=== PATIENT | female | born 1930 | race Caucasian/White ===

== ENCOUNTER 2017-07-16 16:07 | Inpatient (IN) ==
[2017-07-16 17:43] LABS: Bilirubin,Urine Negative (Negative); Blood,Urine Large (Negative); Clarity,Urine Turbid (Clear); Color,Urine Orange (Yellow); Glucose,Urine (UA) Normal (Normal); Ketones,Urine Trace mg/dL (Negative); Leukocyte Esterase,Urine Large (Negative); Nitrite,Urine Positive (Negative); Protein,Urine 100 mg/dL (Neg-Trace); Specific Gravity,Urine 1.013 (1.010-1.025); Urobilinogen,Urine Normal (Normal)
[2017-07-16 17:45] LABS: Bacteria,Urine Many per hpf (None-Few); Hyaline Casts,Urine None Seen per lpf (None-Few); Squamous Epithelial Cell,Urine Many per lpf (None-Few); WBC,Urine TNTC per hpf (0-3)
[2017-07-16 18:27] LABS: Basophils % 0.1 %; Hematocrit 45.6 % (35.3-44.9); Hemoglobin 15.8 g/dL (11.5-15.4); Immature Granulocytes % 1.6 % (0-4); Lymphocytes # 0.2 K/mcL (0.6-4.6); Lymphocytes % 1.8 %; Mean Corpuscular HGB Conc 34.6 g/dL (31.6-35.5); Mean Corpuscular Hemoglobin 32.9 pg (28.0-33.3); Mean Platelet Volume 10.8 fL (9.4-12.4); Monocytes # 0.3 K/mcL (0.0-1.3); Monocytes % 2.4 %; Neutrophils # 10.3 K/mcL (1.6-8.9); Platelet Count 107 K/mcL (140-400); Segmented Neutrophils % 94.1 %
--- NOTE | 2017-07-16 18:37 | Emergency Department Note ---
Disposition Clinical Impression: Hypokalemia, MAURICIO (acute kidney injury) Sepsis Qualifiers: Sepsis type: sepsis due to unspecified organism Qualified Code(s): A41.9 - Sepsis, unspecified organism UTI (urinary tract infection) Qualifiers: Urinary tract infection type: site unspecified Hematuria presence: with hematuria Qualified Code(s): N39.0 - Urinary tract infection, site not specified Disposition: Admitted As Inpatient Condition: Undetermined Referrals: Robin Miller MD [Primary Care Provider] - Forms: ED Satisfaction Letter Time of Disposition: 20:14 General Adult HPI - General Chief complaint: ED Nausea/Vomiting/Diarrhea Stated complaint: N/V Time Seen by Provider: 07/16/17 18:22 Source: patient Mode of arrival: wheelchair Limitations: no limitations Nursing Notes Reviewed: Yes Vital Signs Reviewed: Yes - History of Present Illness HPI Narrative: 87-year-old female with recent diagnosis of "kidney infection" who was treated for this arrives [facility] emergency department complaining of myalgias, ill feeling and generalized malaise that has been worsening over the course of the past 3 days. The patient denies any abdominal pain but admits to fevers, chills, generalized myalgias. She denies any cough, sputum production, unilateral weakness, headache, nuchal rigidity. Upon arrival to the emergency department the patient is tachycardic with a heart rate in the 120s. Onset (ago): day(s) (2-3) Location: other (Generalized) Pain Severity: moderate Pain Scale: 6 Quality: aching Consistency: constant, Worsening Improves with: nothing Worsens with: nothing Associated symptoms: Reports: fever/chills, malaise, nausea/vomiting Treatments Prior to Arrival: none - Related Data Home Medications Medication Instructions Recorded Confirmed Docusate [Colace] 100 mg PO DAILY PRN 07/16/17 07/16/17 Ergocalciferol (VITAMIN D2) 50,000 unit PO WE 07/16/17 07/16/17 [Vitamin D2] Ferrous Sulfate [Iron] 325 mg PO DAILY 07/16/17 07/16/17 Levothyroxine Sodium 112 mcg PO QAM 07/16/17 07/16/17 Losartan Potassium [Cozaar] 100 mg PO DAILY 07/16/17 07/16/17 Allergies Allergy/AdvReac Type Severity Reaction Status Date / Time No Known Allergies Allergy Verified 07/16/17 17:31 All systems ED: reviewed and negative except as stated. Constitutional: Reports: fever, chills, weakness Eyes: Denies: eye pain ENT ED: Denies: ear pain, congestion Cardiovascular: Denies: chest pain, palpitations, dyspnea on exertion, edema, syncope Respiratory: Denies: cough, dyspnea, wheezes, sputum production Gastrointestinal: Reports: nausea, vomiting. Denies: abdominal pain, diarrhea, constipation, hematemesis, melena, hematochezia Genitourinary: Reports: dysuria, frequency. Denies: urgency Musculoskeletal: Reports: back pain, myalgia. Denies: neck pain, arthralgia Neurological: Denies: headache, weakness, numbness, paresthesias, confusion Past Medical History - Past Medical History Attestation: Yes The following information was validated with the patient. Source: patient, old records reviewed Medical history: Reports: hyperlipidemia, hypertension Surgical history: Reports: non-contributory Psychiatric history: Reports: no psych history - Social History Smoking Status: Never smoker Smokeless Tobacco Status: No Alcohol use: Reports: none Drug use: Reports: none Physical Exam - General Limitations: no limitations General appearance: alert, in no apparent distress - Head Head exam: atraumatic, normocephalic, normal inspection - Eye Eye exam: Present: normal appearance, PERRL, EOMI - ENT ENT exam: normal exam, normal oropharynx, mucous membranes moist - Neck Neck exam: Present: normal inspection, full ROM, trachea midline - Chest Chest inspection: Present: normal inspection, symmetric chest wall rise - Respiratory Respiratory exam: Present: normal lung sounds bilaterally - Cardiovascular Cardiovascular exam: Present: normal rhythm, tachycardia, normal heart sounds - Abdominal Exam Abdominal exam: Present: soft, Non-Tender. Absent: tenderness, distention, guarding, rebound, rigidity - Extremities Exam Extremities exam: Present: normal inspection, full ROM. Absent: tenderness, pedal edema - Neurological Exam Neurological exam: Present: alert, oriented X3 - Skin Skin exam: Present: warm, dry, intact, normal color Course Vital Signs Temperature 97.9 F 07/16/17 16:09 Pulse Rate 124 07/16/17 16:09 Respiratory Rate 22 07/16/17 16:09 Blood Pressure 190/94 07/16/17 16:09 O2 Sat by Pulse Oximetry 93 07/16/17 16:09 Temperature 97.9 F 07/16/17 16:09 Pulse Rate 124 07/16/17 16:09 Respiratory Rate 22 07/16/17 16:09 Blood Pressure 190/94 07/16/17 16:09 O2 Sat by Pulse Oximetry 92 07/16/17 18:58 Oxygen Delivery Oxygen Delivery Room Air Medical Decision Making - MDM Narrative Medical decision making narrative: Concern for a patient experiencing sepsis due to patient's tachycardia. The patient does have a urinary tract infection so we will begin treatment for fluid resuscitation as well as IV Rocephin. The patient will be admitted to the hospitalist. Accepted by Dr. Conroy. - Lab Data Lab results reviewed: Yes I reviewed the patient's lab results. Result diagrams: 07/16/17 18:02 07/16/17 18:45 Lab Results 07/16/17 07/16/17 07/16/17 Range/Units 17:16 18:02 18:02 WBC 10.9 (4.3-11.1) K/mcL RBC 4.80 (3.82-4.97) M/mcL Hgb 15.8 H (11.5-15.4) g/dL Hct 45.6 H (35.3-44.9) % MCV 95.0 (83.0-100.0) fL MCH 32.9 (28.0-33.3) pg MCHC 34.6 (31.6-35.5) g/dL RDW 13.0 (11.5-14.5) % Plt Count 107 L (140-400) K/mcL MPV 10.8 (9.4-12.4) fL Immature Gran % 1.6 (0-4) % Seg Neutrophils % 94.1 % Lymphocytes % 1.8 % Monocytes % 2.4 % Eosinophils % 0.0 % Basophils % 0.1 % Neutrophils # 10.3 H (1.6-8.9) K/mcL Lymphocytes # 0.2 L (0.6-4.6) K/mcL Monocytes # 0.3 (0.0-1.3) K/mcL Eosinophils # 0.0 (0.0-0.6) K/mcL Basophils # 0.0 (0.0-0.2) K/mcL Dohle Bodies Present A (Not Present) PT (9.4-12.1) Seconds INR APTT (26.0-36.0) Seconds Sodium 136 (136-145) mEq/L Potassium 2.8 L (3.5-4.5) mEq/L Chloride 101 (98-109) mEq/L Carbon Dioxide 23 (19-29) mEq/L BUN 28 H (7-20) mg/dL Creatinine 1.09 (0.57-1.11) mg/dL Est GFR ( Amer) 58 L (> 60) Est GFR (Non-Af Amer) 48 L (> 60) BUN/Creatinine Ratio 26 (6-26) Glucose 113 H (70-99) mg/dL Calculated Osmolality 288 (280-300) Lactic Acid (0.5-2.2) mmol/L Calcium 9.5 (8.6-10.8) mg/dL Phosphorus (2.3-4.7) mg/dL Magnesium (1.6-2.6) mg/dL Total Bilirubin 1.3 H (0.2-1.2) mg/dL Direct Bilirubin 0.6 H (0.0-0.5) mg/dL Indirect Bilirubin 0.7 (0.0-1.2) mg/dL AST 34 (5-34) Units/L ALT 21 (0-55) Units/L Alkaline Phosphatase 228 H (38-126) Units/L Troponin I (0-0.03) ng/mL Serum Total Protein 7.2 (6.0-8.3) g/dL Albumin 3.3 L (3.5-5.0) g/dL Globulin 3.9 H (2.4-3.5) g/dL Albumin/Globulin Ratio 0.8 L (1.1-2.2) Lipase < 10 (8-78) Units/L Urine Color [place] A (Yellow) Urine Clarity Turbid A (Clear) Urine pH 6.0 (5.0-8.0) pH Units Ur Specific [place] 1.013 (1.010-1.025) Urine Protein 100 H (Neg-Trace) mg/dL Urine Glucose (UA) Normal (Normal) mg/dL Urine Ketones Trace H (Negative) mg/dL Urine Blood Large H (Negative) Urine Nitrite Positive A (Negative) Urine Bilirubin Negative (Negative) Urine Urobilinogen Normal (Normal) mg/dL Ur Leukocyte Esterase Large H (Negative) Urine Microscopic RBC 5-15 H (0-3) per hpf Urine Microscopic WBC TNTC H (0-3) per hpf Ur Squamous Epith Cells Many H (None-Few) per lpf Urine Bacteria Many H (None-Few) per hpf Hyaline Casts None Seen (None-Few) per lpf Ur Culture Indicated? YES A (NO) 07/16/17 07/16/17 07/16/17 Range/Units 18:45 18:45 18:45 WBC (4.3-11.1) K/mcL RBC (3.82-4.97) M/mcL Hgb (11.5-15.4) g/dL Hct (35.3-44.9) % MCV (83.0-100.0) fL MCH (28.0-33.3) pg MCHC (31.6-35.5) g/dL RDW (11.5-14.5) % Plt Count (140-400) K/mcL MPV (9.4-12.4) fL Immature Gran % (0-4) % Seg Neutrophils % % Lymphocytes % % Monocytes % % Eosinophils % % Basophils % % Neutrophils # (1.6-8.9) K/mcL Lymphocytes # (0.6-4.6) K/mcL Monocytes # (0.0-1.3) K/mcL Eosinophils # (0.0-0.6) K/mcL Basophils # (0.0-0.2) K/mcL Dohle Bodies (Not Present) PT 12.6 H (9.4-12.1) Seconds INR 1.2 APTT 25.5 L (26.0-36.0) Seconds Sodium 136 (136-145) mEq/L Potassium 2.7 L (3.5-4.5) mEq/L Chloride 101 (98-109) mEq/L Carbon Dioxide 25 (19-29) mEq/L BUN 28 H (7-20) mg/dL Creatinine 1.16 H (0.57-1.11) mg/dL Est GFR ( Amer) 54 L (> 60) Est GFR (Non-Af Amer) 44 L (> 60) BUN/Creatinine Ratio 24 (6-26) Glucose 109 H (70-99) mg/dL Calculated Osmolality 288 (280-300) Lactic Acid 2.1 (0.5-2.2) mmol/L Calcium 9.4 (8.6-10.8) mg/dL Phosphorus 1.3 L (2.3-4.7) mg/dL Magnesium 1.2 L (1.6-2.6) mg/dL Total Bilirubin (0.2-1.2) mg/dL Direct Bilirubin (0.0-0.5) mg/dL Indirect Bilirubin (0.0-1.2) mg/dL AST (5-34) Units/L ALT (0-55) Units/L Alkaline Phosphatase (38-126) Units/L Troponin I (0-0.03) ng/mL Serum Total Protein (6.0-8.3) g/dL Albumin (3.5-5.0) g/dL Globulin (2.4-3.5) g/dL Albumin/Globulin Ratio (1.1-2.2) Lipase (8-78) Units/L Urine Color (Yellow) Urine Clarity (Clear) Urine pH (5.0-8.0) pH Units Ur Specific [place] (1.010-1.025) Urine Protein (Neg-Trace) mg/dL Urine Glucose (UA) (Normal) mg/dL Urine Ketones (Negative) mg/dL Urine Blood (Negative) Urine Nitrite (Negative) Urine Bilirubin (Negative) Urine Urobilinogen (Normal) mg/dL Ur Leukocyte Esterase (Negative) Urine Microscopic RBC (0-3) per hpf Urine Microscopic WBC (0-3) per hpf Ur Squamous Epith Cells (None-Few) per lpf Urine Bacteria (None-Few) per hpf Hyaline Casts (None-Few) per lpf Ur Culture Indicated? (NO) 07/16/17 Range/Units 18:45 WBC (4.3-11.1) K/mcL RBC (3.82-4.97) M/mcL Hgb (11.5-15.4) g/dL Hct (35.3-44.9) % MCV (83.0-100.0) fL MCH (28.0-33.3) pg MCHC (31.6-35.5) g/dL RDW (11.5-14.5) % Plt Count (140-400) K/mcL MPV (9.4-12.4) fL Immature Gran % (0-4) % Seg Neutrophils % % Lymphocytes % % Monocytes % % Eosinophils % % Basophils % % Neutrophils # (1.6-8.9) K/mcL Lymphocytes # (0.6-4.6) K/mcL Monocytes # (0.0-1.3) K/mcL Eosinophils # (0.0-0.6) K/mcL Basophils # (0.0-0.2) K/mcL Dohle Bodies (Not Present) PT (9.4-12.1) Seconds INR APTT (26.0-36.0) Seconds Sodium (136-145) mEq/L Potassium (3.5-4.5) mEq/L Chloride (98-109) mEq/L Carbon Dioxide (19-29) mEq/L BUN (7-20) mg/dL Creatinine (0.57-1.11) mg/dL Est GFR ( Amer) (> 60) Est GFR (Non-Af Amer) (> 60) BUN/Creatinine Ratio (6-26) Glucose (70-99) mg/dL Calculated Osmolality (280-300) Lactic Acid (0.5-2.2) mmol/L Calcium (8.6-10.8) mg/dL Phosphorus (2.3-4.7) mg/dL Magnesium (1.6-2.6) mg/dL Total Bilirubin (0.2-1.2) mg/dL Direct Bilirubin (0.0-0.5) mg/dL Indirect Bilirubin (0.0-1.2) mg/dL AST (5-34) Units/L ALT (0-55) Units/L Alkaline Phosphatase (38-126) Units/L Troponin I 0.09 H* (0-0.03) ng/mL Serum Total Protein (6.0-8.3) g/dL Albumin (3.5-5.0) g/dL Globulin (2.4-3.5) g/dL Albumin/Globulin Ratio (1.1-2.2) Lipase (8-78) Units/L Urine Color (Yellow) Urine Clarity (Clear) Urine pH (5.0-8.0) pH Units Ur Specific [place] (1.010-1.025) Urine Protein (Neg-Trace) mg/dL Urine Glucose (UA) (Normal) mg/dL Urine Ketones (Negative) mg/dL Urine Blood (Negative) Urine Nitrite (Negative) Urine Bilirubin (Negative) Urine Urobilinogen (Normal) mg/dL Ur Leukocyte Esterase (Negative) Urine Microscopic RBC (0-3) per hpf Urine Microscopic WBC (0-3) per hpf Ur Squamous Epith Cells (None-Few) per lpf Urine Bacteria (None-Few) per hpf Hyaline Casts (None-Few) per lpf Ur Culture Indicated? (NO) - Radiology Data Radiology results reviewed: Yes I reviewed the patient's radiology results. - EKG Data EKG #1 EKG attestation: Yes I reviewed and interpreted this EKG. EKG results narrative: Heart rate 1 18 bpm. NE interval 148 ms. QTC 410 ms. Normal axis. Sinus tachycardia with mild ST depression diffusely noted in leads. With tachycardia and ST depression noted. Critical Care Time Critical Care Time: Yes Total Critical Care Time: 35 Attestation: Critical care time spent was approximately 35 minutes. Time spent and medical management of possible sepsis secondary to a urinary tract infection.
[2017-07-16 18:44] LABS: Alanine Aminotransferase 21 Units/L (0-55); Albumin 3.3 g/dL (3.5-5.0); Albumin/Globulin Ratio 0.8 (1.1-2.2); Alkaline Phosphatase 228 Units/L (38-126); Aspartate Amino Transferase 34 Units/L (5-34); BUN/Creatinine Ratio 26 (6-26); Bilirubin,Direct 0.6 mg/dL (0.0-0.5); Bilirubin,Indirect 0.7 mg/dL (0.0-1.2); Bilirubin,Total 1.3 mg/dL (0.2-1.2); Blood Urea Nitrogen 28 mg/dL (7-20); Calcium 9.5 mg/dL (8.6-10.8); Carbon Dioxide 23 mEq/L (19-29); Chloride 101 mEq/L (98-109); Globulin 3.9 g/dL (2.4-3.5); Glucose 113 mg/dL (70-99); Osmolality,Calculated 288 (280-300); Potassium 2.8 mEq/L (3.5-4.5); Sodium 136 mEq/L (136-145); Total Protein 7.2 g/dL (6.0-8.3); eGFR For African Americans 58 (> 60); eGFR For Non-African Americans 48 (> 60)
[2017-07-16 18:45] LABS: Lipase < 10 Units/L (8-78)
[2017-07-16 18:48] LABS: Dohle Bodies Present (Not Present)
[2017-07-16 18:56] LABS: INR 1.2; Prothrombin Time 12.6 Seconds (9.4-12.1)
[2017-07-16 18:59] LABS: Activated Partial Thrombo Time 25.5 Seconds (26.0-36.0)
[2017-07-16 19:02] LABS: Calcium 9.4 mg/dL (8.6-10.8); Magnesium 1.2 mg/dL (1.6-2.6); Phosphorous 1.3 mg/dL (2.3-4.7); Potassium 2.7 mEq/L (3.5-4.5)
--- NOTE | 2017-07-16 19:02 | Emergency Department Note ---
START Narrative - START START: I examined this patient and my medical decision-making was reviewed with the Resident Physician. I agree with the documented findings, disposition and treatment plan as described except to the extent set forth below. 87 yo F here for urinary sx. having painful urination assoc with fevers, nausea , poor appetite, and weakness. will tx for UTI and sepsis iv fluids, rocephin, blood cultures admit
[2017-07-16] MEDS: 0.9 % Sodium Chloride 1,000 ML IVC SCH ×3 (19:13→23:17)
[2017-07-16] MEDS ORDERED: Azithromycin 500 MG in D5% in Water 250 ML IVPB ONE (19:17)
[2017-07-16] MEDS ORDERED: Aspirin 325 MG TABLET PO ONE (19:20)
[2017-07-16] MEDS ORDERED: Ondansetron 4 MG/2 ML VIAL IVP PRN (20:19)
[2017-07-16] MEDS ORDERED: Naloxone 0.4 MG/ML INJ IVP PRN (20:19)
--- NOTE | 2017-07-16 23:18 | Internal Med History&Physical ---
<Aj Beckman - Last Filed: 07/17/17 00:09> Date of Encounter: 07/17/17 Time of Encounter: 20:45 Assessment and Plan (1) Severe sepsis Current visit: Yes Status: Acute Patient presents to the hospital with acute kidney injury and tachycardia, likely secondary to sepsis from UTI. -Urinalysis revealed the presence of Rich turbid urine with positive leukocyte esterase and nitrates, as well as white blood cells and bacteria. -Blood cultures and urine cultures have been ordered. -Patient is currently on Rocephin. -IV fluids. -Adjust antibiotic therapy as needed based on the results of blood and urine culture. (2) UTI (urinary tract infection) Current visit: Yes Status: Acute Patient signs and symptoms are consistent with UTI. -Patient experienced frequency, urgency, nausea, vomiting, and malaise, and low back pain. -Urinalysis performed in the ER revealed the presence of orange-colored, turbid urine, leukocyte esterase present with positive nitrates, and positive for white blood cells and bacteria. -Patient is on IV fluids. Rocephin. Blood cultures and urine cultures have been ordered. Qualifiers: Urinary tract infection type: site unspecified Hematuria presence: with hematuria Qualified Code(s): N39.0 - Urinary tract infection, site not specified; R31.9 - Hematuria, unspecified; R31.9 - Hematuria, unspecified (3) Hypokalemia Current visit: Yes Status: Acute Replace as needed. (4) MAURICIO (acute kidney injury) Current visit: Yes Status: Acute Patient's creatinine on admission was 1.09, has increased to 1.16. -Presence of acute kidney injury indicative of severe sepsis secondary to UTI. -IV fluids. -Continue antibiotics, adjust treatment accordingly with blood and urine culture results. (5) Hypertension Current visit: Yes Status: Acute Patient has a known history of hypertension. Blood pressure on admission was elevated at 190/94. -Patient's family states that patient's blood pressure routinely fluctuates. -Patient normally takes losartan for blood pressure. -Hold this medication for the time being due to patient's MAURICIO. Qualifiers: Qualified Code(s): I10 - Essential (primary) hypertension Internal Medicine - H&P: HPI Chief complaint: Dysuria, nausea, malaise Admitted From: Home History of present illness: Ms. Skinner is a 87 year old female with a past medical history of hyperlipidemia and hypertension who presented to the emergency department with chief complaint of myalgias, ill feeling, and generalized malaise of 3 days' duration. Patient states that since this started, her symptoms had gradually gotten worse. Patient does not have any prior history of urinary tract infections. Patient denies having any abdominal pain, but admits to having fevers, chills, and lower back pain bilaterally. She describes her lower back pain as aching in character, rated 6/10, nonradiating, and constant. Patient denies having any cough, sputum production, weakness, headache, or nuchal rigidity. Patient denies ever having these symptoms before. She denies ever having any kidney stones. Patient does note a recent change in the appearance of her urine, describing it as cloudy and orange in color. Patient denies seeing any blood in the urine. Past Med Surg Social Fam HX - Past Medical History Medical history: hyperlipidemia, hypertension Psychiatric history: no psych history - Past Surgical History Surgical History: non-contributory - Social History Smoking Status: Never smoker Smokeless Tobacco Status: No Alcohol use: none Drug use: none - Family History Son Living Status: Age at : 40 Cause of : [place] Hx Family Cardiac Disorders: Yes Father Living Status: Hx Family Cardiac Disorders: Yes Internal Medicine - H&P: Meds Docusate [Colace] 100 mg PO DAILY PRN 07/16/17 [History] Ergocalciferol (VITAMIN D2) [Vitamin D2] 50,000 unit PO WE 07/16/17 [History] Ferrous Sulfate [Iron] 325 mg PO DAILY 07/16/17 [History] Levothyroxine Sodium 112 mcg PO QAM 07/16/17 [History] Losartan Potassium [Cozaar] 100 mg PO DAILY 07/16/17 [History] 3 Allergy/AdvReac Type Severity Reaction Status Date / Time No Known Allergies Allergy Verified 07/16/17 17:31 All Systems PM: A 10-system review of systems was performed and is negative for pertinent findings except as documented above in the HPI. - Constitutional Constitutional: chills, malaise, weakness, no night sweats - Cardiovascular Cardiovascular ROS IM: no chest pain, no diaphoresis, no dyspnea, no lightheadedness, no palpitations, no syncope - Respiratory Respiratory: no cough, no dyspnea, no wheezing, no excessive phlegm production - Gastrointestinal Gastrointestinal: nausea, vomiting, no abdominal pain, no diarrhea, no hematemesis, no hematochezia, no melena - Genitourinary Genitourinary: dysuria, urinary frequency, urinary urgency, no change in urinary stream, no hematuria - Musculoskeletal Musculoskeletal ROS IM: back pain - Constitutional Vitals: Temp Pulse Resp BP Pulse Ox 98.1 F 107 20 121/59 98 07/16/17 21:57 07/16/17 21:57 07/16/17 21:57 07/16/17 21:57 07/16/17 21:57 General appearance: Present: A&O X 3, answers questions appropriately - Head Head exam: Present: atraumatic, normal inspection, normocephalic - Respiratory Respiratory exam: Present: CTAB. Absent: accessory muscle use, rales, rhonchi, wheezes - Cardiovascular Cardiovascular exam: Present: RRR, +S1, +S2. Absent: diastolic murmur, gallop, rubs, systolic murmur - GI/Abdominal GI/Abdominal exam: Present: normal bowel sounds, soft, no peritoneal signs. Absent: distended, tenderness - Extremities Exam Extremities exam: Present: warm, radial pulses palpable and symmetrical. Absent : pedal edema - Skin Skin exam: Present: dry, intact Internal Med - H&P Results - Labs CBC & Chem 7: 07/16/17 18:02 07/16/17 18:45 <Jose R Finn - Last Filed: 07/17/17 01:20> Date of Encounter: 07/16/17 Internal Medicine - H&P: HPI History of present illness: Ms. Skinner is a 87 year old female All Systems PM: A 10-system review of systems was performed and is negative for pertinent findings except as documented above in the HPI. - Constitutional Vitals: Temp Pulse Resp BP Pulse Ox 98.1 F 107 20 121/59 98 07/16/17 21:57 07/16/17 21:57 07/16/17 21:57 07/16/17 21:57 07/16/17 21:57 Internal Med - H&P Results - Labs CBC & Chem 7: 07/16/17 18:02 07/16/17 18:45 - Attending Attestation Correction; date of encounter was 07/16/17 and not 07/17/17 I personally interviewed and examined this patient and my medical decision- making was reviewed with the Resident Physician. I agree with the documented findings, disposition and treatment plan as described except to the extent set forth below. Patient meets SIRS criteria with tachycardia and tachypnea, with a source as well as end organ dysfunction. Meets MAURICIO by elevated creatinine from baseline of 0.7 to 1.16. Physical exam suggested crackles on the right middle and lower lung base but pt reports known history of emphysema on that side. Jose R Finn MD, MPH Hospitalist
[2017-07-17] MEDS: *HR* Heparin 5,000 UNIT/ML VIAL SQ SCH ×2 (05:42→17:04)
[2017-07-17 06:04] LABS: Hematocrit 39.3 % (35.3-44.9); Hemoglobin 13.2 g/dL (11.5-15.4); Immature Platelets 8.6 % (1.1-6.1); Mean Corpuscular HGB Conc 33.6 g/dL (31.6-35.5); Mean Corpuscular Hemoglobin 32.6 pg (28.0-33.3); Mean Platelet Volume 11.3 fL (9.4-12.4); Red Blood Count 4.05 M/mcL (3.82-4.97); Red Cell Distribution Width 13.3 % (11.5-14.5)
[2017-07-17 06:10] LABS: Acinetobacter baumannii by PCR Not Detected (Not Detect); Candida albicans by PCR Not Detected (Not Detect); Candida glabrata by PCR Not Detected (Not Detect); Candida krusei by PCR Not Detected (Not Detect); Candida parapsilosis by PCR Not Detected (Not Detect); Candida tropicalis by PCR Not Detected (Not Detect); Enterococcus by PCR Not Detected (Not Detect); Escherichia coli by PCR ***DETECTED*** (Not Detect); Klebsiella oxytoca by PCR Not Detected (Not Detect); Klebsiella pneumoniae by PCR Not Detected (Not Detect); Pseudomonas aeruginosa by PCR Not Detected (Not Detect); Serratia marcescens by PCR Not Detected (Not Detect); Staphylococcus aureus by PCR Not Detected (Not Detect); Streptococcus agalactiae(B)PCR Not Detected (Not Detect); Streptococcus by PCR Not Detected (Not Detect); Streptococcus pneumoniae PCR Not Detected (Not Detect); Streptococcus pyogenes (A) PCR Not Detected (Not Detect); blaKPC Carbapenem-Resist Gene Not Detected (Not Detect)
[2017-07-17 06:17] LABS: Platelet Count 99 K/mcL (140-400)
[2017-07-17 06:21] LABS: BUN/Creatinine Ratio 29 (6-26); Blood Urea Nitrogen 24 mg/dL (7-20); Carbon Dioxide 22 mEq/L (19-29); Chloride 107 mEq/L (98-109); Glucose 106 mg/dL (70-99); Magnesium 2.1 mg/dL (1.6-2.6); Osmolality,Calculated 288 (280-300); Sodium 137 mEq/L (136-145); eGFR For African Americans > 60 (> 60); eGFR For Non-African Americans > 60 (> 60)
[2017-07-17 06:29] LABS: Calcium 7.9 mg/dL (8.6-10.8); Phosphorous 3.1 mg/dL (2.3-4.7); Potassium 4.1 mEq/L (3.5-4.5)
[2017-07-17 06:33] LABS: Lymphocytes # 2.1 K/mcL (0.6-4.6); Monocytes # 1.8 K/mcL (0.0-1.3); Neutrophils # 13.7 K/mcL (1.6-8.9); Platelet Estimate Slight Decrease (Normal)
--- NOTE | 2017-07-17 08:27 | Internal Med Progress Note ---
<Dirk Nicole - Last Filed: 07/17/17 16:01> Date of Encounter: 07/17/17 Time of Encounter: 08:40 - Assessment and plan (1) Severe sepsis Current Visit: Yes Status: Acute Assessment and plan: SIRS/Sepsis criteria: Tachycardia, tachypnea, marginal blood pressure, WBC 17.5 , 62% Bands, Severe UTI/Bateremia, Lactic Acid 2.5 Upon presentation, the patient was clearly septic. This has resolved substantially Urine culture demonstrates Escherichia coli, blood culture showed Escherichia coli bacteremia Patient was started on ceftriaxone Day 1 We will continue to monitor (2) UTI (urinary tract infection) Current Visit: Yes Status: Acute Assessment and plan: UTI, culture positive Escherichia coli Patient is being treated with ceftriaxone day 1 She remains afebrile, vitals have returned to stable Patient is not experiencing any symptoms Qualifiers: Urinary tract infection type: site unspecified Hematuria presence: with hematuria Qualified Code(s): N39.0 - Urinary tract infection, site not specified; R31.9 - Hematuria, unspecified; R31.9 - Hematuria, unspecified (3) Hypokalemia Current Visit: Yes Status: Resolved Assessment and plan: Hypokalemia on admission, resolved (4) Hypertension Current Visit: Yes Status: Acute Assessment and plan: Hold home meds for hypotension Qualifiers: Hypertension type: essential hypertension Qualified Code(s): I10 - Essential (primary) hypertension (5) DVT prophylaxis Current Visit: Yes Status: Acute Assessment and plan: SQ heparin - Subjective Interval history: The patient is resting comfortably in bed at the time of the examination. She is not having any acute symptoms, and she says that she is feeling okay overall. - Constitutional Vitals: Temp Pulse Resp BP Pulse Ox 97.7 F 87 14 132/72 97 07/17/17 06:44 07/17/17 06:44 07/17/17 06:44 07/17/17 06:44 07/17/17 06:44 General appearance: Present: cooperative, A&O X 3, underweight, answers questions appropriately. Absent: mild distress - Head Head exam: Present: atraumatic, normocephalic - Eye Eye exam: Present: PERRL, conjuntiva pink, sclera anicteric Pupils: Present: PERRL - Neck Neck exam general surgery: Present: supple, trachea midline. Absent: lymphadenopathy - Respiratory Respiratory exam: Present: CTAB. Absent: accessory muscle use, rales, rhonchi, wheezes - Cardiovascular Cardiovascular exam: Present: RRR, +S1, +S2. Absent: diastolic murmur, gallop, rubs, systolic murmur - GI/Abdominal GI/Abdominal exam: Present: normal bowel sounds, soft, no peritoneal signs. Absent: distended, tenderness - Extremities Exam Extremities exam: Present: warm, radial pulses palpable and symmetrical. Absent : calf tenderness, cyanotic, pedal edema - Neurological Exam Neurological exam: Present: CN II-XII intact, oriented X3, no focal deficits. Absent: pronater drift, facial droop, speech deficit - Skin Skin exam: Present: dry, intact Internal Medicine: Result - Labs CBC & Chem 7: 07/17/17 05:19 07/17/17 05:19 Labs: Short CBC 07/17/17 Range/Units 05:19 WBC 17.5 H D (4.3-11.1) K/mcL Hgb 13.2 D (11.5-15.4) g/dL Hct 39.3 (35.3-44.9) % Plt Count 99 L (140-400) K/mcL Neutrophils # 13.7 H (1.6-8.9) K/mcL BMP 07/17/17 05:19 Sodium 137 Potassium 4.1 D Chloride 107 Carbon Dioxide 22 BUN 24 H Creatinine 0.84 Glucose 106 H Calcium 7.9 L D Cardiac Enzymes 07/17/17 Range/Units 05:19 Troponin I 0.04 H* (0-0.03) ng/mL - ABG Interpretation ABG results: PT/INR, D-dimer PT 12.6 Seconds (9.4-12.1) H 07/16/17 18:45 Consult Discharge Plan - Plan Referrals: Robin Miller MD [Primary Care Provider] - <Sanjeev Cha - Last Filed: 07/17/17 18:52> Date of Encounter: 07/17/17 - Constitutional Vitals: Temp Pulse Resp BP Pulse Ox 97.8 F 98 14 136/74 94 07/17/17 15:00 07/17/17 15:00 07/17/17 15:00 07/17/17 15:00 07/17/17 15:00 Internal Medicine: Result - Labs CBC & Chem 7: 07/17/17 05:19 07/17/17 05:19 Labs: Short CBC 07/17/17 Range/Units 05:19 WBC 17.5 H D (4.3-11.1) K/mcL Hgb 13.2 D (11.5-15.4) g/dL Hct 39.3 (35.3-44.9) % Plt Count 99 L (140-400) K/mcL Neutrophils # 13.7 H (1.6-8.9) K/mcL BMP 07/17/17 05:19 Sodium 137 Potassium 4.1 D Chloride 107 Carbon Dioxide 22 BUN 24 H Creatinine 0.84 Glucose 106 H Calcium 7.9 L D Cardiac Enzymes 07/17/17 Range/Units 05:19 Troponin I 0.04 H* (0-0.03) ng/mL - ABG Interpretation ABG results: PT/INR, D-dimer PT 12.6 Seconds (9.4-12.1) H 07/16/17 18:45 - Attending Attestation I examined this patient and my medical decision-making was reviewed with the Resident Physician. I agree with the documented findings, disposition and treatment plan as described except to the extent set forth below.
[2017-07-17] MEDS: 0.9 % Sodium Chloride 1,000 ML IVC SCH (16:08)
[2017-07-17] MEDS: Acetaminophen 325 MG TABLET PO PRN (18:25)
--- NOTE | 2017-07-17 20:25 | Electrocardiograph Report ---
[address] [place] [address] Test Date: 2017-07-16 Pat Name: Shelley Skinner Department: 102 Room: [facility] Gender: F Fruit Raiser: Kiran : 1930 Requested By: John Griffiths Order Number: [id number] Reading MD: Arnaldo Pineda MD Measurements Intervals [place] Rate: 118 P: 57 KS: 148 QRS: 69 QRSD: 86 T: 63 QT: 340 QTc: 410 Interpretive Statements SINUS TACHYCARDIA Electronically Signed On 07-17-2017 20:23:52 EDT by Arnaldo Pineda MD
[2017-07-18] MEDS: 0.9 % Sodium Chloride 1,000 ML IVC SCH (00:38)
--- NOTE | 2017-07-18 05:06 | Internal Med Progress Note ---
<Dirk Nicole - Last Filed: 07/18/17 14:54> Date of Encounter: 07/18/17 Time of Encounter: 08:45 - Assessment and plan (1) Severe sepsis Current Visit: Yes Status: Acute Assessment and plan: Sepsis secondary to E. Coli UTI/Bacteremia, Resolved SIRS/Sepsis criteria: Tachycardia, WBC 14, 2% Bands Urine culture demonstrates Escherichia coli, blood culture showed Escherichia coli bacteremia Patient was started on ceftriaxone Day 2 We will continue to monitor (2) UTI (urinary tract infection) Current Visit: Yes Status: Acute Assessment and plan: UTI, culture positive Escherichia coli Patient is being treated with ceftriaxone day 2 She remains afebrile, vitals have returned to stable Patient is not experiencing any symptoms Qualifiers: Urinary tract infection type: site unspecified Hematuria presence: with hematuria Qualified Code(s): N39.0 - Urinary tract infection, site not specified; R31.9 - Hematuria, unspecified; R31.9 - Hematuria, unspecified (3) Hypokalemia Current Visit: Yes Status: Resolved Assessment and plan: K+ 3.3, 2.7 on admission 20mEq KCl BID today, and then will initiate maintenance dose (4) Hypertension Current Visit: Yes Status: Acute Assessment and plan: BP on admission was low, Increased to 154/85 after IV fluids Stop fluids, continue oral hydration Restart losartan at 50mg initially, will increase to home dose of 100mg as tolerated Qualifiers: Hypertension type: essential hypertension Qualified Code(s): I10 - Essential (primary) hypertension (5) Severe protein-calorie malnutrition Current Visit: Yes Status: Acute Assessment and plan: The patient has had poor oral intake of food for about one month, and has lost 10pounds in that time She is underweight We will focus on calorie intake. (6) DVT prophylaxis Current Visit: Yes Status: Acute Assessment and plan: SQ heparin - Subjective Interval history: The patient is resting comfortably in bed at the time of the examination. She is not having any acute symptoms, and she says that she is feeling okay overall. She does complain of tenderness where her air sampling and monitoring is resting, but it is relieved by moving the monitor. - Constitutional Vitals: Temp Pulse Resp BP Pulse Ox 98.4 F 95 16 154/85 96 07/18/17 03:00 07/18/17 03:00 07/18/17 03:00 07/18/17 03:00 07/18/17 03:00 General appearance: Present: cooperative, A&O X 3, underweight, answers questions appropriately. Absent: mild distress - Head Head exam: Present: atraumatic, normocephalic - Eye Eye exam: Present: PERRL, conjuntiva pink, sclera anicteric Pupils: Present: PERRL - Neck Neck exam general surgery: Present: supple, trachea midline. Absent: lymphadenopathy - Respiratory Respiratory exam: Present: rhonchi (Right lung, patient says chronic from emphasymatous changes). Absent: accessory muscle use, rales, wheezes - Cardiovascular Cardiovascular exam: Present: RRR, +S1, +S2. Absent: diastolic murmur, gallop, rubs, systolic murmur - GI/Abdominal GI/Abdominal exam: Present: normal bowel sounds, soft, no peritoneal signs. Absent: distended, tenderness - Extremities Exam Extremities exam: Present: warm, radial pulses palpable and symmetrical. Absent : calf tenderness, cyanotic, pedal edema - Neurological Exam Neurological exam: Present: CN II-XII intact, oriented X3, no focal deficits. Absent: pronater drift, facial droop, speech deficit - Skin Skin exam: Present: dry, intact Internal Medicine: Result - Labs CBC & Chem 7: 07/18/17 05:50 07/18/17 05:50 Labs: Short CBC 07/17/17 Range/Units 05:19 WBC 17.5 H D (4.3-11.1) K/mcL Hgb 13.2 D (11.5-15.4) g/dL Hct 39.3 (35.3-44.9) % Plt Count 99 L (140-400) K/mcL Neutrophils # 13.7 H (1.6-8.9) K/mcL BMP 07/17/17 05:19 Sodium 137 Potassium 4.1 D Chloride 107 Carbon Dioxide 22 BUN 24 H Creatinine 0.84 Glucose 106 H Calcium 7.9 L D Cardiac Enzymes 07/17/17 Range/Units 05:19 Troponin I 0.04 H* (0-0.03) ng/mL - ABG Interpretation ABG results: PT/INR, D-dimer PT 12.6 Seconds (9.4-12.1) H 07/16/17 18:45 Consult Discharge Plan - Plan Referrals: Robin Miller MD [Primary Care Provider] - <Sanjeev Cha P - Last Filed: 07/18/17 19:04> Date of Encounter: 07/18/17 - Constitutional Vitals: Temp Pulse Resp BP Pulse Ox 98.2 F 97 18 148/88 97 07/18/17 18:35 07/18/17 18:35 07/18/17 18:35 07/18/17 18:35 07/18/17 16:00 Internal Medicine: Result - Labs CBC & Chem 7: 07/18/17 05:50 07/18/17 05:50 Labs: Short CBC 07/18/17 Range/Units 05:50 WBC 14.0 H (4.3-11.1) K/mcL Hgb 13.8 (11.5-15.4) g/dL Hct 40.7 (35.3-44.9) % Plt Count 107 L (140-400) K/mcL Neutrophils # 11.5 H (1.6-8.9) K/mcL BMP 07/18/17 05:50 Sodium 140 Potassium 3.3 L Chloride 112 H Carbon Dioxide 23 BUN 15 Creatinine 0.70 Glucose 83 Calcium 8.4 L - ABG Interpretation ABG results: PT/INR, D-dimer PT 12.6 Seconds (9.4-12.1) H 07/16/17 18:45 - Attending Attestation I examined this patient and my medical decision-making was reviewed with the Resident Physician. I agree with the documented findings, disposition and treatment plan as described except to the extent set forth below.
[2017-07-18 06:44] LABS: Hematocrit 40.7 % (35.3-44.9); Hemoglobin 13.8 g/dL (11.5-15.4); Mean Corpuscular HGB Conc 33.9 g/dL (31.6-35.5); Mean Corpuscular Hemoglobin 32.7 pg (28.0-33.3); Mean Corpuscular Volume 96.4 fL (83.0-100.0); Mean Platelet Volume 11.2 fL (9.4-12.4); Platelet Count 107 K/mcL (140-400); Red Blood Count 4.22 M/mcL (3.82-4.97); Red Cell Distribution Width 13.8 % (11.5-14.5)
[2017-07-18 06:59] LABS: BUN/Creatinine Ratio 21 (6-26); Blood Urea Nitrogen 15 mg/dL (7-20); Calcium 8.4 mg/dL (8.6-10.8); Carbon Dioxide 23 mEq/L (19-29); Chloride 112 mEq/L (98-109); Glucose 83 mg/dL (70-99); Osmolality,Calculated 290 (280-300); Potassium 3.3 mEq/L (3.5-4.5); Sodium 140 mEq/L (136-145); eGFR For African Americans > 60 (> 60); eGFR For Non-African Americans > 60 (> 60)
[2017-07-18 07:12] LABS: Monocytes # 0.6 K/mcL (0.0-1.3); Neutrophils # 11.5 K/mcL (1.6-8.9)
[2017-07-18 07:14] LABS: Platelet Estimate Slight Decrease (Normal)
[2017-07-18 07:15] LABS: Dohle Bodies Present (Not Present)
[2017-07-18] MEDS: *HR* Heparin 5,000 UNIT/ML VIAL SQ SCH ×2 (09:01→17:39)
--- NOTE | 2017-07-18 14:21 | Discharge Summary ---
Date of Encounter: 07/18/17 - Discharge Diagnosis (1) Severe sepsis Status: Acute (2) UTI (urinary tract infection) Status: Acute Qualifiers: Urinary tract infection type: site unspecified Hematuria presence: with hematuria Qualified Code(s): N39.0 - Urinary tract infection, site not specified; R31.9 - Hematuria, unspecified; R31.9 - Hematuria, unspecified (3) Hypokalemia Status: Resolved (4) Hypertension Status: Acute Qualifiers: Hypertension type: essential hypertension Qualified Code(s): I10 - Essential (primary) hypertension (5) DVT prophylaxis Status: Acute - Discharge Medications Home Medications: Docusate [Colace] 100 mg PO DAILY PRN 07/16/17 [History] Ergocalciferol (VITAMIN D2) [Vitamin D2] 50,000 unit PO WE 07/16/17 [History] Ferrous Sulfate [Iron] 325 mg PO DAILY 07/16/17 [History] Levothyroxine Sodium 112 mcg PO QAM 07/16/17 [History] Losartan Potassium [Cozaar] 100 mg PO DAILY 07/16/17 [History] Allergies/Adverse Reactions: 3 Allergy/AdvReac Type Severity Reaction Status Date / Time No Known Allergies Allergy Verified 07/16/17 17:31 Date of admission: 07/16/17 20:54 Primary care physician: Robin Miller MD Consults: 07/16/17 22:16 Consult to Nutrition [CONS] Routine Comment: Consulting Provider: NUTRITION Reason for Dietary Consult: MST Score - Patient Status Condition: Undetermined - Discharge Instructions Follow Up With: Robin Miller MD [Primary Care Provider] - Hospital course: Ms. Skinner is a 87 year old female - Time Spent with Patient Total time spent providing and/or coordinating discharge services: - Constitutional Vitals: Temp Pulse Resp BP Pulse Ox 97.9 F 89 15 147/87 97 07/18/17 06:41 07/18/17 06:41 07/18/17 06:41 07/18/17 06:41 07/18/17 06:41 General appearance: Present: cooperative, A&O X 3, underweight, answers questions appropriately. Absent: mild distress
[2017-07-19 05:09] LABS: Basophils % 0.4 %; Eosinophils # 0.1 K/mcL (0.0-0.6); Eosinophils % 1.2 %; Hemoglobin 14.2 g/dL (11.5-15.4); Immature Granulocytes % 0.7 % (0-4); Lymphocytes # 1.1 K/mcL (0.6-4.6); Lymphocytes % 10.5 %; Mean Corpuscular HGB Conc 33.8 g/dL (31.6-35.5); Mean Corpuscular Volume 94.6 fL (83.0-100.0); Mean Platelet Volume 10.9 fL (9.4-12.4); Monocytes # 1.3 K/mcL (0.0-1.3); Monocytes % 11.5 %; Neutrophils # 8.2 K/mcL (1.6-8.9); Platelet Count 121 K/mcL (140-400); Red Blood Count 4.44 M/mcL (3.82-4.97); Red Cell Distribution Width 13.5 % (11.5-14.5); Segmented Neutrophils % 75.7 %
[2017-07-19 05:25] LABS: BUN/Creatinine Ratio 18 (6-26); Blood Urea Nitrogen 12 mg/dL (7-20); Calcium 8.9 mg/dL (8.6-10.8); Carbon Dioxide 27 mEq/L (19-29); Chloride 107 mEq/L (98-109); Glucose 90 mg/dL (70-99); Osmolality,Calculated 289 (280-300); Potassium 3.3 mEq/L (3.5-4.5); Sodium 140 mEq/L (136-145); eGFR For African Americans > 60 (> 60); eGFR For Non-African Americans > 60 (> 60)
[2017-07-19] MEDS: *HR* Heparin 5,000 UNIT/ML VIAL SQ SCH ×2 (05:52→18:16)
[2017-07-19] MEDS: Acetaminophen 325 MG TABLET PO PRN ×2 (08:23→21:09)
[2017-07-19] MEDS: *HR* Labetalol 20 MG/4 ML SYRINGE IVP PRN ×2 (08:24→18:16)
--- NOTE | 2017-07-19 18:00 | Internal Med Progress Note ---
Date of Encounter: 07/19/17 Time of Encounter: 17:58 - Assessment and plan (1) Severe sepsis Current Visit: Yes Status: Acute Assessment and plan: Severe sepsis Source: Likely urinary tract infection Organism: Escherichia coli Blood culture/urine culture positive for the same organism. Plan: Presently on ceftriaxone: Day 3 Will continue present antibiotic. (2) UTI (urinary tract infection) Current Visit: Yes Status: Acute Assessment and plan: UTI, culture positive Escherichia coli Patient is being treated with ceftriaxone day 2 She remains afebrile, vitals have returned to stable Patient is not experiencing any symptoms Qualifiers: Urinary tract infection type: site unspecified Hematuria presence: with hematuria Qualified Code(s): N39.0 - Urinary tract infection, site not specified; R31.9 - Hematuria, unspecified; R31.9 - Hematuria, unspecified (3) Hypertension Current Visit: Yes Status: Acute Assessment and plan: BP on admission was low, Increased to 154/85 after IV fluids Stop fluids, continue oral hydration Restart losartan at 50mg initially, will increase to home dose of 100mg as tolerated Qualifiers: Hypertension type: essential hypertension Qualified Code(s): I10 - Essential (primary) hypertension (4) Severe protein-calorie malnutrition Current Visit: Yes Status: Acute Assessment and plan: The patient has had poor oral intake of food for about one month, and has lost 10pounds in that time She is underweight We will focus on calorie intake. - Subjective Interval history: Patient seen and examined. Chart reviewed. patient is comfortably sitting up in bed. Family around bedside. - Constitutional Vitals: Temp Pulse Resp BP Pulse Ox 98.4 F 80 16 181/92 96 07/19/17 16:07 07/19/17 16:07 07/19/17 16:07 07/19/17 16:07 07/19/17 16:07 General appearance: Present: cooperative, A&O X 3, underweight, answers questions appropriately. Absent: mild distress - Head Head exam: Present: atraumatic, normocephalic - Eye Eye exam: Present: PERRL, conjuntiva pink, sclera anicteric Pupils: Present: PERRL - Neck Neck exam general surgery: Present: supple, trachea midline. Absent: lymphadenopathy - Respiratory Respiratory exam: Present: CTAB. Absent: accessory muscle use, rales, rhonchi, wheezes - Cardiovascular Cardiovascular exam: Present: RRR, +S1, +S2. Absent: diastolic murmur, gallop, rubs, systolic murmur - GI/Abdominal GI/Abdominal exam: Present: normal bowel sounds, soft, no peritoneal signs. Absent: distended, tenderness - Extremities Exam Extremities exam: Present: warm, radial pulses palpable and symmetrical. Absent : calf tenderness, cyanotic, pedal edema - Neurological Exam Neurological exam: Present: CN II-XII intact, oriented X3, no focal deficits. Absent: pronater drift, facial droop, speech deficit - Skin Skin exam: Present: dry, intact Internal Medicine: Result - Labs CBC & Chem 7: 07/19/17 04:49 07/19/17 04:49 Labs: Short CBC 07/19/17 Range/Units 04:49 WBC 10.8 (4.3-11.1) K/mcL Hgb 14.2 (11.5-15.4) g/dL Hct 42.0 (35.3-44.9) % Plt Count 121 L (140-400) K/mcL Neutrophils # 8.2 (1.6-8.9) K/mcL BMP 07/19/17 04:49 Sodium 140 Potassium 3.3 L Chloride 107 Carbon Dioxide 27 BUN 12 Creatinine 0.68 Glucose 90 Calcium 8.9 - ABG Interpretation ABG results: PT/INR, D-dimer PT 12.6 Seconds (9.4-12.1) H 07/16/17 18:45 Consult Discharge Plan - Plan Referrals: Robin Miller MD [Primary Care Provider] -
[2017-07-20 04:09] LABS: Basophils # 0.1 K/mcL (0.0-0.2); Basophils % 0.6 %; Eosinophils # 0.2 K/mcL (0.0-0.6); Eosinophils % 2.5 %; Hematocrit 40.4 % (35.3-44.9); Hemoglobin 13.7 g/dL (11.5-15.4); Immature Granulocytes % 1.7 % (0-4); Lymphocytes # 1.6 K/mcL (0.6-4.6); Lymphocytes % 17.4 %; Mean Corpuscular HGB Conc 33.9 g/dL (31.6-35.5); Mean Corpuscular Hemoglobin 31.8 pg (28.0-33.3); Mean Corpuscular Volume 93.7 fL (83.0-100.0); Mean Platelet Volume 11.1 fL (9.4-12.4); Monocytes # 1.2 K/mcL (0.0-1.3); Monocytes % 13.7 %; Neutrophils # 5.8 K/mcL (1.6-8.9); Platelet Count 128 K/mcL (140-400); Red Blood Count 4.31 M/mcL (3.82-4.97); Red Cell Distribution Width 13.3 % (11.5-14.5); Segmented Neutrophils % 64.1 %
[2017-07-20 04:18] LABS: Alanine Aminotransferase 16 Units/L (0-55); Albumin 2.1 g/dL (3.5-5.0); Albumin/Globulin Ratio 0.6 (1.1-2.2); Alkaline Phosphatase 117 Units/L (38-126); Aspartate Amino Transferase 18 Units/L (5-34); BUN/Creatinine Ratio 18 (6-26); Bilirubin,Total 0.6 mg/dL (0.2-1.2); Blood Urea Nitrogen 12 mg/dL (7-20); Carbon Dioxide 32 mEq/L (19-29); Chloride 105 mEq/L (98-109); Globulin 3.3 g/dL (2.4-3.5); Glucose 88 mg/dL (70-99); Osmolality,Calculated 293 (280-300); Potassium 3.2 mEq/L (3.5-4.5); Sodium 142 mEq/L (136-145); Total Protein 5.4 g/dL (6.0-8.3); eGFR For African Americans > 60 (> 60); eGFR For Non-African Americans > 60 (> 60)
[2017-07-20] MEDS: *HR* Heparin 5,000 UNIT/ML VIAL SQ SCH ×2 (08:24→16:49)
--- NOTE | 2017-07-20 13:57 | Internal Med Progress Note ---
Date of Encounter: 07/20/17 Time of Encounter: 13:44 - Assessment and plan (1) Severe sepsis Current Visit: Yes Status: Acute Assessment and plan: Severe sepsis Source: Likely urinary tract infection Organism: Escherichia coli Blood culture/urine culture positive for the same organism. Plan: Presently on ceftriaxone: Day 3 Will continue present antibiotic. 07/20/2017 Patient claims that she is feeling much better as compared to the past 3 days. Will continue same antibiotics for now. Presently ceftriaxone: Day 4 Patient and family is aware of the plan. (2) UTI (urinary tract infection) Current Visit: Yes Status: Acute Assessment and plan: UTI, culture positive Escherichia coli Patient is being treated with ceftriaxone day 2 She remains afebrile, vitals have returned to stable Patient is not experiencing any symptoms Qualifiers: Urinary tract infection type: site unspecified Hematuria presence: with hematuria Qualified Code(s): N39.0 - Urinary tract infection, site not specified; R31.9 - Hematuria, unspecified; R31.9 - Hematuria, unspecified (3) Hypertension Current Visit: Yes Status: Acute Assessment and plan: BP on admission was low, Increased to 154/85 after IV fluids Stop fluids, continue oral hydration Restart losartan at 50mg initially, will increase to home dose of 100mg as tolerated 07/20/2017 Patient's blood pressure was elevated. Noted that patient's home dose of losartan 100 mg. We will resume the home dose. Qualifiers: Hypertension type: essential hypertension Qualified Code(s): I10 - Essential (primary) hypertension (4) Severe protein-calorie malnutrition Current Visit: Yes Status: Acute Assessment and plan: The patient has had poor oral intake of food for about one month, and has lost 10pounds in that time She is underweight We will focus on calorie intake. - Subjective Interval history: Patient seen and examined. Chart reviewed. patient is comfortably sitting up in bed. Family around bedside. 07/20/2017 Patient seen and examined. Chart reviewed. Patient is comfortably lying in the bed. Patient's entire family is at bedside. Patient denies any chest pain, shortness of breath, nausea, vomiting, abdominal pain and diarrhea - Constitutional Vitals: Temp Pulse Resp BP Pulse Ox 98.3 F 90 16 186/91 94 07/20/17 11:29 07/20/17 12:58 07/20/17 11:29 07/20/17 12:58 07/20/17 11:29 General appearance: Present: cooperative, A&O X 3, underweight, answers questions appropriately. Absent: mild distress - Head Head exam: Present: atraumatic, normocephalic - Eye Eye exam: Present: PERRL, conjuntiva pink, sclera anicteric Pupils: Present: PERRL - Neck Neck exam general surgery: Present: supple, trachea midline. Absent: lymphadenopathy - Respiratory Respiratory exam: Present: CTAB. Absent: accessory muscle use, rales, rhonchi, wheezes - Cardiovascular Cardiovascular exam: Present: RRR, +S1, +S2. Absent: diastolic murmur, gallop, rubs, systolic murmur - GI/Abdominal GI/Abdominal exam: Present: normal bowel sounds, soft, no peritoneal signs. Absent: distended, tenderness - Extremities Exam Extremities exam: Present: warm, radial pulses palpable and symmetrical. Absent : calf tenderness, cyanotic, pedal edema - Neurological Exam Neurological exam: Present: CN II-XII intact, oriented X3, no focal deficits. Absent: pronater drift, facial droop, speech deficit - Skin Skin exam: Present: dry, intact Internal Medicine: Result - Labs CBC & Chem 7: 07/20/17 03:34 07/20/17 03:34 Labs: Short CBC 07/20/17 Range/Units 03:34 WBC 9.1 (4.3-11.1) K/mcL Hgb 13.7 (11.5-15.4) g/dL Hct 40.4 (35.3-44.9) % Plt Count 128 L (140-400) K/mcL Neutrophils # 5.8 (1.6-8.9) K/mcL BMP 07/20/17 03:34 Sodium 142 Potassium 3.2 L Chloride 105 Carbon Dioxide 32 H BUN 12 Creatinine 0.67 Glucose 88 Calcium 9.0 Liver Function 07/20/17 Range/Units 03:34 Total Bilirubin 0.6 (0.2-1.2) mg/dL AST 18 (5-34) Units/L ALT 16 (0-55) Units/L Alkaline Phosphatase 117 (38-126) Units/L Albumin 2.1 L (3.5-5.0) g/dL - ABG Interpretation ABG results: PT/INR, D-dimer PT 12.6 Seconds (9.4-12.1) H 07/16/17 18:45 Consult Discharge Plan - Plan Referrals: Robin Miller MD [Primary Care Provider] -
[2017-07-20] MEDS: *HR* Labetalol 20 MG/4 ML SYRINGE IVP PRN (18:39)
[2017-07-21 03:28] LABS: Hematocrit 41.9 % (35.3-44.9); Hemoglobin 14.3 g/dL (11.5-15.4); Mean Corpuscular HGB Conc 34.1 g/dL (31.6-35.5); Mean Corpuscular Hemoglobin 31.8 pg (28.0-33.3); Mean Corpuscular Volume 93.3 fL (83.0-100.0); Mean Platelet Volume 10.3 fL (9.4-12.4); Platelet Count 146 K/mcL (140-400); Red Blood Count 4.49 M/mcL (3.82-4.97); Red Cell Distribution Width 13.2 % (11.5-14.5)
[2017-07-21 03:42] LABS: Alanine Aminotransferase 14 Units/L (0-55); Albumin 2.3 g/dL (3.5-5.0); Albumin/Globulin Ratio 0.7 (1.1-2.2); Alkaline Phosphatase 117 Units/L (38-126); Aspartate Amino Transferase 18 Units/L (5-34); BUN/Creatinine Ratio 18 (6-26); Bilirubin,Total 0.8 mg/dL (0.2-1.2); Blood Urea Nitrogen 12 mg/dL (7-20); Carbon Dioxide 31 mEq/L (19-29); Chloride 103 mEq/L (98-109); Globulin 3.4 g/dL (2.4-3.5); Glucose 100 mg/dL (70-99); Osmolality,Calculated 294 (280-300); Potassium 3.2 mEq/L (3.5-4.5); Sodium 142 mEq/L (136-145); Total Protein 5.7 g/dL (6.0-8.3); eGFR For African Americans > 60 (> 60); eGFR For Non-African Americans > 60 (> 60)
[2017-07-21 03:53] LABS: Platelet Estimate Normal (Normal)
[2017-07-21 03:56] LABS: Monocytes # 0.7 K/mcL (0.0-1.3); Neutrophils # 4.5 K/mcL (1.6-8.9); Reactive Lymphocytes Present (Not Present)
--- NOTE | 2017-07-21 05:19 | Internal Med Progress Note ---
Date of Encounter: 07/21/17 - Assessment and plan (1) Severe sepsis Current Visit: Yes Status: Acute (2) UTI (urinary tract infection) Current Visit: Yes Status: Acute Qualifiers: Urinary tract infection type: site unspecified Hematuria presence: with hematuria Qualified Code(s): N39.0 - Urinary tract infection, site not specified; R31.9 - Hematuria, unspecified; R31.9 - Hematuria, unspecified (3) Hypokalemia Current Visit: Yes Status: Resolved (4) Hypertension Current Visit: Yes Status: Acute Qualifiers: Hypertension type: essential hypertension Qualified Code(s): I10 - Essential (primary) hypertension (5) Severe protein-calorie malnutrition Current Visit: Yes Status: Acute (6) DVT prophylaxis Current Visit: Yes Status: Acute - Subjective Interval history: The patient is resting comfortably in bed at the time of the examination. She is not having any acute symptoms, and she says that she is feeling okay overall. She does complain of tenderness where her director cardiac is resting, but it is relieved by moving the monitor. - Constitutional Vitals: Temp Pulse Resp BP Pulse Ox 98.7 F 79 18 177/90 97 07/21/17 00:04 07/21/17 00:04 07/21/17 00:04 07/21/17 00:04 07/21/17 00:04 General appearance: Present: cooperative, A&O X 3, underweight, answers questions appropriately. Absent: mild distress Internal Medicine: Result - Labs CBC & Chem 7: 07/21/17 03:13 07/21/17 03:13 Labs: Short CBC 07/21/17 Range/Units 03:13 WBC 8.4 (4.3-11.1) K/mcL Hgb 14.3 (11.5-15.4) g/dL Hct 41.9 (35.3-44.9) % Plt Count 146 (140-400) K/mcL Neutrophils # 4.5 (1.6-8.9) K/mcL BMP 07/21/17 03:13 Sodium 142 Potassium 3.2 L Chloride 103 Carbon Dioxide 31 H BUN 12 Creatinine 0.67 Glucose 100 H Calcium 9.0 Liver Function 07/21/17 Range/Units 03:13 Total Bilirubin 0.8 (0.2-1.2) mg/dL AST 18 (5-34) Units/L ALT 14 (0-55) Units/L Alkaline Phosphatase 117 (38-126) Units/L Albumin 2.3 L (3.5-5.0) g/dL - ABG Interpretation ABG results: PT/INR, D-dimer PT 12.6 Seconds (9.4-12.1) H 07/16/17 18:45 Consult Discharge Plan - Plan Referrals: Robin Miller MD [Primary Care Provider] -
[2017-07-21] MEDS: *HR* Heparin 5,000 UNIT/ML VIAL SQ SCH ×2 (05:58→18:03)
--- NOTE | 2017-07-21 11:44 | Discharge Summary ---
<Dirk Nicole - Last Filed: 07/21/17 13:18> Date of Encounter: 07/21/17 Time of Encounter: 08:40 - Discharge Diagnosis (1) Severe sepsis Priority: Primary Status: Acute (2) UTI (urinary tract infection) Priority: Secondary Status: Acute Qualifiers: Urinary tract infection type: site unspecified Hematuria presence: with hematuria Qualified Code(s): N39.0 - Urinary tract infection, site not specified; R31.9 - Hematuria, unspecified; R31.9 - Hematuria, unspecified (3) Hypokalemia Priority: Secondary Status: Acute (4) Hypertension Priority: Secondary Status: Acute Qualifiers: Hypertension type: essential hypertension Qualified Code(s): I10 - Essential (primary) hypertension (5) Severe protein-calorie malnutrition Priority: Secondary Status: Acute (6) DVT prophylaxis Priority: Secondary Status: Acute - Discharge Medications Prescriptions: levoFLOXacin [Levaquin] 500 mg PO DAILY #8 tablet Potassium Chloride [Klor-Con 10] 10 meq PO DAILY #30 tablet.er Home Medications: Docusate [Colace] 100 mg PO DAILY PRN 07/16/17 [History] Ergocalciferol (VITAMIN D2) [Vitamin D2] 50,000 unit PO WE 07/16/17 [History] Ferrous Sulfate [Iron] 325 mg PO DAILY 07/16/17 [History] Levothyroxine Sodium 112 mcg PO QAM 07/16/17 [History] Losartan Potassium [Cozaar] 100 mg PO DAILY 07/16/17 [History] Potassium Chloride [Klor-Con 10] 10 meq PO DAILY #30 tablet.er 07/21/17 [Rx] levoFLOXacin [Levaquin] 500 mg PO DAILY #8 tablet 07/21/17 [Rx] Allergies/Adverse Reactions: 3 Allergy/AdvReac Type Severity Reaction Status Date / Time No Known Allergies Allergy Verified 07/16/17 17:31 Date of admission: 07/16/17 20:54 Primary care physician: Robin Miller MD Consults: 07/16/17 22:16 Consult to Nutrition [CONS] Routine Comment: Consulting Provider: NUTRITION Reason for Dietary Consult: MST Score 07/20/17 08:09 Consult to Physical Therapy [CONS] Routine Comment: Evaluate, develop and implement POC Reason for Consult: unsteady gait Consult to Medical Claims Analyst [CONS] Routine Reason for SW Consult: not safe to go home, getting PT/OT unsteady gait OT [Consult to Occupational Therapy] [CONS] Routine Comment: Evaluate, develop and implement POC Reason for Consult: unsteady gait Discharging clinician: Sanjeev Cha Anticipated date of discharge: 07/21/17 - Patient Status Disposition: Home Health Service Condition: Fair Overall status at discharge: patient is progressing back to baseline - Ambulatory Orders Ambulatory Orders: Basic Metabolic Panel [CHEM] Time Frame: 1 Week, Location: Any - Discharge Instructions Follow Up With: Robin Miller MD [Primary Care Provider] - 07/24/17 1:00 pm Additional Instructions: continue 8 days of Levaquin continue 10mEq KCl BMP within 1 week Follow up with PCP (Dr. Miller) in 1 week - Diet and Activity Activity: as per physical therapy Diet: low salt diet Hospital course: Ms. Skinner is a 87 year old female with a past medical history of chronic low back pain, hyperlipidemia and hypertension who presented to the emergency department with chief complaint of myalgias, ill feeling, and generalized malaise of 3 days' duration. In the ED the patient had blood cultures and urine cultures ordered which would eventually come back positive for Escherichia coli. She was started on ceftriaxone IV during ER visit, which was continued and she was admitted to the hospital. Patient was also found to initially be hypotensive, blood pressure medications were held and fluids were started. Additionally, the patient initially required oxygen via nasal cannula in order to titrate appropriately, however she was successfully titrated over the course of her stay. The patient was evaluated by PT/OT due to generalized malaise and weakness, and they determined that she would benefit from inpatient rehabilitation however the patient was interested in going home. The patient will be discharged home on normal blood pressure medication and will require follow-up with primary care within 1 week. The patient is also given an order for an outpatient BMP due to hypokalemia with potassium supplementation at time of discharge. The patient has adequate support from family, including her son who has agreed to take off time from work in order to care for her. - Time Spent with Patient Total time spent providing and/or coordinating discharge services: - Constitutional Vitals: Temp Pulse Resp BP Pulse Ox 98 F 78 15 169/76 97 07/21/17 07:00 07/21/17 07:00 07/21/17 07:00 07/21/17 07:00 07/21/17 07:00 General appearance: Present: cooperative, A&O X 3, underweight, answers questions appropriately. Absent: mild distress Exam: - Head Head exam: Present: atraumatic, normocephalic - Eye Eye exam: Present: PERRL, conjuntiva pink, sclera anicteric Pupils: Present: PERRL - Neck Neck exam general surgery: Present: supple, trachea midline. Absent: lymphadenopathy - Respiratory Respiratory exam: Present: rhonchi (Right lung, patient says chronic from emphasymatous changes). Absent: accessory muscle use, rales, wheezes - Cardiovascular Cardiovascular exam: Present: RRR, +S1, +S2. Absent: diastolic murmur, gallop, rubs, systolic murmur - GI/Abdominal GI/Abdominal exam: Present: normal bowel sounds, soft, no peritoneal signs. Absent: distended, tenderness - Extremities Exam Extremities exam: Present: warm, radial pulses palpable and symmetrical. Absent : calf tenderness, cyanotic, pedal edema - Neurological Exam Neurological exam: Present: CN II-XII intact, oriented X3, no focal deficits. Absent: pronater drift, facial droop, speech deficit - Skin Skin exam: Present: dry, intact <Starla,Sanjeev P - Last Filed: 07/21/17 20:51> Date of Encounter: 07/21/17 - Discharge Diagnosis (1) Severe sepsis Status: Acute (2) UTI (urinary tract infection) Status: Acute Qualifiers: Urinary tract infection type: site unspecified Hematuria presence: with hematuria Qualified Code(s): N39.0 - Urinary tract infection, site not specified; R31.9 - Hematuria, unspecified; R31.9 - Hematuria, unspecified (3) Hypertension Status: Acute Qualifiers: Hypertension type: essential hypertension Qualified Code(s): I10 - Essential (primary) hypertension (4) Severe protein-calorie malnutrition Status: Acute Date of admission: 07/16/17 20:54 Primary care physician: Robin Miller MD Consults: 07/16/17 22:16 Consult to Nutrition [CONS] Routine Comment: Consulting Provider: NUTRITION Reason for Dietary Consult: MST Score 07/20/17 08:09 Consult to Physical Therapy [CONS] Routine Comment: Evaluate, develop and implement POC Reason for Consult: unsteady gait Consult to Medical Claims Analyst [CONS] Routine Reason for SW Consult: not safe to go home, getting PT/OT unsteady gait OT [Consult to Occupational Therapy] [CONS] Routine Comment: Evaluate, develop and implement POC Reason for Consult: unsteady gait Hospital course: Ms. Skinner is a 87 year old female - Time Spent with Patient Total time spent providing and/or coordinating discharge services: - Constitutional Vitals: Temp Pulse Resp BP Pulse Ox 97.4 F L 76 16 182/96 96 07/21/17 12:05 07/21/17 12:05 07/21/17 12:05 07/21/17 12:05 07/21/17 12:05 - Attending Attestation I examined this patient and my medical decision-making was reviewed with the Resident Physician. I agree with the documented findings, disposition and treatment plan as described except to the extent set forth below.
[2017-07-21] MEDS ORDERED: levoFLOXacin 500 MG TABLET PO ONE (11:48)
--- NOTE | 2017-07-21 11:55 | Physician Discharge Referral ---
<Dirk Nicole - Last Filed: 07/21/17 11:53> Home Health/Hosp Referral Info Transfer to: Home Health Attending Provider: Sanjeev Cha Provider in Charge Post Discharge: PCP - Diagnosis (1) Severe sepsis Priority: Primary Status: Acute (2) UTI (urinary tract infection) Priority: Secondary Status: Acute (3) Hypokalemia Priority: Secondary Status: Acute (4) Hypertension Priority: Secondary Status: Acute (5) Severe protein-calorie malnutrition Priority: Secondary Status: Acute (6) DVT prophylaxis Priority: Secondary Status: Acute (7) Generalized weakness Priority: Secondary Status: Acute - Respiratory Orders None Smoking Cessation: Smoking cessation has been advised. For more information, call the [employer] Tobacco Quit Line at 5-135-LKAZ-NOW. - Diet/Nutrition Diet/Nutrition Orders: No Added Salt (GERALDINE) - Activity Activity Orders: Up ad sirena - Services Needed Following services are medically necessary services: Home Health Aide, Physical Therapy, Occupational Therapy Home Care Orders: PT/OT Eval and treat - Transfer Medications Prescriptions: levoFLOXacin [Levaquin] 500 mg PO DAILY #8 tablet Potassium Chloride [Klor-Con 10] 10 meq PO DAILY #30 tablet.er Home Medications: Docusate [Colace] 100 mg PO DAILY PRN 07/16/17 [History] Ergocalciferol (VITAMIN D2) [Vitamin D2] 50,000 unit PO WE 07/16/17 [History] Ferrous Sulfate [Iron] 325 mg PO DAILY 07/16/17 [History] Levothyroxine Sodium 112 mcg PO QAM 07/16/17 [History] Losartan Potassium [Cozaar] 100 mg PO DAILY 07/16/17 [History] Potassium Chloride [Klor-Con 10] 10 meq PO DAILY #30 tablet.er 07/21/17 [Rx] levoFLOXacin [Levaquin] 500 mg PO DAILY #8 tablet 07/21/17 [Rx] Allergies/Adverse Reactions: 3 Allergy/AdvReac Type Severity Reaction Status Date / Time No Known Allergies Allergy Verified 07/16/17 17:31 Certification: Further, I certify that my clinical findings support that this patient is homebound (i.e. absences from home require considerable and taxing effort and are for medical reasons or islam services or infrequently or short duration when for other reasons) because: Homebound Reason: Leaving home requires considerable and taxing effort due to condition Attestation: My signature below is to certify that this patient is under my care and that I, or nurse practitioner, or a physician's sales support assistant working with me, has a face-to -face encounter with this patient. <Sanjeev Cha P - Last Filed: 07/21/17 20:51> - Diagnosis (1) Severe sepsis Status: Acute (2) UTI (urinary tract infection) Status: Acute (3) Hypertension Status: Acute (4) Severe protein-calorie malnutrition Status: Acute - Respiratory Orders Smoking Cessation: Smoking cessation has been advised. For more information, call the [place] Tobacco Quit Line at 9-936-SSCY-NOW. Certification: Further, I certify that my clinical findings support that this patient is homebound (i.e. absences from home require considerable and taxing effort and are for medical reasons or islam services or infrequently or short duration when for other reasons) because: Attestation: My signature below is to certify that this patient is under my care and that I, or nurse practitioner, or a physician's sales support assistant working with me, has a face-to -face encounter with this patient.
[2017-07-21] MEDS: Acetaminophen 325 MG TABLET PO PRN (13:13)
[2017-07-22 01:32] LABS: Basophils # 0.1 K/mcL (0.0-0.2); Basophils % 0.8 %; Eosinophils # 0.2 K/mcL (0.0-0.6); Eosinophils % 2.2 %; Hematocrit 41.8 % (35.3-44.9); Hemoglobin 14.1 g/dL (11.5-15.4); Immature Granulocytes % 2.9 % (0-4); Lymphocytes # 1.7 K/mcL (0.6-4.6); Lymphocytes % 18.2 %; Mean Corpuscular HGB Conc 33.7 g/dL (31.6-35.5); Mean Corpuscular Hemoglobin 31.8 pg (28.0-33.3); Mean Corpuscular Volume 94.1 fL (83.0-100.0); Monocytes % 10.8 %; Neutrophils # 6.2 K/mcL (1.6-8.9); Platelet Count 179 K/mcL (140-400); Red Blood Count 4.44 M/mcL (3.82-4.97); Red Cell Distribution Width 13.4 % (11.5-14.5); Segmented Neutrophils % 65.1 %
[2017-07-22 02:17] LABS: Platelet Estimate Normal (Normal); Toxic Granulation Present (Not Present)
[2017-07-22] MEDS: *HR* Heparin 5,000 UNIT/ML VIAL SQ SCH (05:22)
[2017-07-22 14:15] VITALS: BP 130/69
--- NOTE | 2017-07-22 19:27 | Event Note ---
Date of Encounter: 07/22/17 Time of Encounter: 14:00 Ms Skinner has been admitted for UTI and sepsis. She was originally discharged yesterday but did not go home. She is feeling better today. Exam Alert. Comfortable Heart reg No wheeze I/P 1. UTI - cystits without hematuria 2. HTN Further diagnoses as per discharge summary.
--- NOTE | 2017-07-22 19:29 | Internal Med Progress Note ---
Date of Encounter: 07/22/17 Time of Encounter: 14:00 - Assessment and plan (1) UTI (urinary tract infection) Status: Acute Assessment and plan: Completing abx. Qualifiers: Urinary tract infection type: acute cystitis Hematuria presence: with hematuria Qualified Code(s): N30.01 - Acute cystitis with hematuria (2) Sepsis Status: Resolved Qualifiers: Sepsis type: sepsis due to unspecified organism Qualified Code(s): A41.9 - Sepsis, unspecified organism (3) Hypokalemia Status: Acute Assessment and plan: To be discharged on PO dose. (4) Hypertension Status: Acute Assessment and plan: Discharge on home meds. Qualifiers: Hypertension type: essential hypertension Qualified Code(s): I10 - Essential (primary) hypertension (5) Severe protein-calorie malnutrition Status: Acute Assessment and plan: Encourage PO - Subjective Interval history: Ms Skinner has been admitted for UTI. She is doing better today. She is ready to go home. - Constitutional Vitals: Temp Pulse Resp BP Pulse Ox 98.3 F 97 17 130/69 97 07/22/17 07:33 07/22/17 14:14 07/22/17 07:33 07/22/17 14:14 07/22/17 07:33 General appearance: Present: cooperative, A&O X 3, answers questions appropriately. Absent: mild distress - Head Head exam: Present: normocephalic - Eye Eye exam: Present: EOMI, conjuntiva pink - ENT ENT exam: Present: mucous membranes dry - Respiratory Respiratory exam: Present: CTAB. Absent: rhonchi, wheezes - Cardiovascular Cardiovascular exam: Present: RRR. Absent: tachycardia - GI/Abdominal GI/Abdominal exam: Present: soft - Extremities Exam Extremities exam: Present: warm. Absent: tenderness - Neurological Exam Neurological exam: Present: alert, oriented X3 Internal Medicine: Result - Labs CBC & Chem 7: 07/22/17 01:17 07/21/17 03:13 Labs: Short CBC 07/22/17 Range/Units 01:17 WBC 9.5 (4.3-11.1) K/mcL Hgb 14.1 (11.5-15.4) g/dL Hct 41.8 (35.3-44.9) % Plt Count 179 (140-400) K/mcL Neutrophils # 6.2 (1.6-8.9) K/mcL - ABG Interpretation ABG results: PT/INR, D-dimer PT 12.6 Seconds (9.4-12.1) H 07/16/17 18:45 Consult Discharge Plan - Plan Instructions: Potassium Chloride (By mouth), Levofloxacin (By mouth), Urinary Tract Infection in Women (DC), Sepsis (DC), Chronic Hypertension (DC) Additional Instructions: continue 8 days of Levaquin continue 10mEq KCl BMP within 1 week Follow up with PCP (Dr. Miller) in 1 week Referrals: Robin Miller MD [Primary Care Provider] - 07/24/17 1:00 pm Prescriptions: levoFLOXacin [Levaquin] 500 mg PO DAILY #8 tablet Potassium Chloride [Klor-Con 10] 10 meq PO DAILY #30 tablet.er
== END 2017-07-22 16:39 | disposition home health service (06) | DRG 871 ==
LOC: EMEROO 16:07 → SUATTDRO 20:54 → 2NENU 20:54
PROVIDERS: ADMIT Internal Medicine; ATTEND Internal Medicine

== ENCOUNTER 2018-03-16 19:39 | Inpatient (IN) ==
[2018-03-16] MEDS ORDERED: *HR* Labetalol 100 MG/20 ML MDV IVP ONE (19:55)
--- NOTE | 2018-03-16 20:01 | Emergency Department Note ---
Disposition Clinical Impression: Headache Qualifiers: Headache type: unspecified Headache chronicity pattern: unspecified pattern Intractability: not intractable Qualified Code(s): R51 - Headache Hypertension Qualifiers: Hypertension type: essential hypertension Qualified Code(s): I10 - Essential ( primary) hypertension Disposition: Admitted As Inpatient Condition: Fair General Adult HPI - General Stated complaint: headache/high BP Time Seen by Provider: 03/16/18 19:52 Source: patient, EMS Mode of arrival: ambulatory Limitations: no limitations Nursing Notes Reviewed: Yes Vital Signs Reviewed: Yes - History of Present Illness HPI Narrative: 87-year-old female with a history of hypertension presents for evaluation of a headache with high blood pressure. Patient's initial chief complaint was blurry vision. States she did not feel well throughout the day today. Woke up with blurry vision. Denies any double vision or change in vision. Patient states he typically wears corrective lenses but that has not made a difference in her blurry vision. Patient reports some dizziness. Patient reports a headache. Denies any chest pain or shortness of breath. Patient states she feels unsteady on her feet. Patient denies any abdominal pain. No nausea or vomiting. No focal weakness. Patient states that they decreased her blood pressure medication back in July however denies any recent changes in medications. Pain Scale: 4 - Related Data Home Medications Medication Instructions Recorded Confirmed Docusate [Colace] 100 mg PO DAILY PRN 07/16/17 07/16/17 Ergocalciferol (VITAMIN D2) 50,000 unit PO WE 07/16/17 07/16/17 [Vitamin D2] Ferrous Sulfate [Iron] 325 mg PO DAILY 07/16/17 07/16/17 Levothyroxine Sodium 112 mcg PO QAM 07/16/17 03/16/18 Losartan Potassium [Cozaar] 100 mg PO DAILY 07/16/17 07/16/17 Allergies Allergy/AdvReac Type Severity Reaction Status Date / Time No Known Allergies Allergy Verified 03/16/18 20:25 All systems ED: reviewed and negative except as stated. Constitutional: Denies: fever Eyes: Denies: eye pain, vision change ENT ED: Denies: ear pain Cardiovascular: Denies: chest pain, palpitations Respiratory: Denies: cough, dyspnea, wheezes Gastrointestinal: Denies: abdominal pain, nausea, vomiting Past Medical History - Past Medical History Source: patient Medical history: Reports: hyperlipidemia, hypertension Surgical history: Reports: non-contributory Psychiatric history: Reports: no psych history - Social History Smoking Status: Never smoker Smokeless Tobacco Status: No Alcohol use: Reports: none Drug use: Reports: none Physical Exam - General Limitations: no limitations General appearance: alert, in no apparent distress - Head Head exam: atraumatic, normocephalic, normal inspection - Eye Eye exam: Present: normal appearance - ENT ENT exam: normal exam, normal oropharynx, mucous membranes moist - Neck Neck exam: Present: normal inspection - Chest Chest inspection: Present: normal inspection, symmetric chest wall rise - Respiratory Respiratory exam: Present: normal lung sounds bilaterally. Absent: respiratory distress - Cardiovascular Cardiovascular exam: Present: normal rhythm, tachycardia. Absent: systolic murmur - Abdominal Exam Abdominal exam: Present: soft, Non-Tender - Extremities Exam Extremities exam: Present: normal inspection. Absent: pedal edema - Back Exam Back exam: Present: normal inspection - Neurological Exam Neurological exam: Present: alert, oriented X3, CN II-XII intact - Expanded Neurological Exam Patient oriented to: Present: person, place, time Speech: Present: fluid speech Cranial nerves: EOM function (II, III, IV, ): Normal, facial sensation (V): Normal, facial palsy (VII): Normal, spinal accessory function (XI): Normal, tongue deviation (XII): Normal Cerebellar function: finger to nose: Normal Motor strength - LUE: 5/5 Motor strength - RUE: 5/5 Motor strength - LLE: 5/5 Motor strength - RLE: 5/5 Upper motor neuron exam: pronator drift: Absent bilaterally Sensory exam upper extremity: light touch: Normal Sensory exam lower extremity: light touch: Normal Coma Scale Eye Opening: Spontaneous Coma Scale Motor Response: Obeys Commands Coma Scale Verbal Response: Oriented Coma Scale Total: 15 - Skin Skin exam: Present: warm, dry, intact, normal color Course Course Narrative: Patient seen and examination. Patient does have systolic blood pressures in the 200s. Patient will be given IV labetalol and started on a nicardipine drip. Patient also get a head CT. Patient will get screening cardiopulmonary evaluation and admission to the hospital. - Reevaluation(s) Reevaluation #1: Patient family at bedside. Updated on plan of care. Patient will need hospitalized regarding her hypertension. Time: 20:25 Reevaluation #2: After single dose of labetalol the patient's blood pressure systolic was in the 170s. Did not administer nicardipine. However nicardipine is at bedside. Time: 20:53 Reevaluation #3: Patient's blood pressure improved after single dose of labetalol. Patient continues to rest comfortably. Time: 22:19 Vital Signs Temperature 97.6 F 03/16/18 19:52 Pulse Rate 94 03/16/18 19:52 Respiratory Rate 18 03/16/18 19:52 Blood Pressure 212/112 03/16/18 19:52 O2 Sat by Pulse Oximetry 93 03/16/18 19:52 Temperature 98.5 F 03/17/18 05:18 Pulse Rate 80 03/17/18 05:18 Respiratory Rate 16 03/17/18 05:18 Blood Pressure 142/74 03/17/18 05:18 O2 Sat by Pulse Oximetry 92 03/17/18 05:18 Oxygen Delivery Oxygen Delivery Room Air Medical Decision Making - [facility] Narrative Medical decision making narrative: 87-year-old female presented for blurry vision. Patient was found to have an elevated blood pressure. Symptoms are all likely secondary to her elevated blood pressure. Gradual blood pressure control was performed in the ER. Patient's blood pressure was 170 systolically with a goal less than 180 systolic. Patient had a head CT which was unremarkable. Patient had basic labs including a troponin EKG and chest x-ray all of which were clinically unremarkable. Patient will be admitted to the hospital service for further evaluation and monitoring regarding her blood pressure management. Family was agreeable with said plan of care. - Lab Data Lab results reviewed: Yes I reviewed the patient's lab results. Result diagrams: 03/17/18 04:19 03/17/18 04:19 Lab Results 03/16/18 03/16/18 03/16/18 Range/Units 20:10 20:10 20:10 WBC 7.2 (4.3-11.1) K/mcL RBC 4.83 (3.82-4.97) M/mcL Hgb 15.8 H (11.5-15.4) g/dL Hct 46.9 H (35.3-44.9) % MCV 97.1 (83.0-100.0) fL MCH 32.7 (28.0-33.3) pg MCHC 33.7 (31.6-35.5) g/dL RDW 12.9 (11.5-14.5) % Plt Count 172 (140-400) K/mcL MPV 9.6 (9.4-12.4) fL Immature Gran % 0.1 (0-4) % Seg Neutrophils % 39.7 % Lymphocytes % 46.2 % Monocytes % 10.2 % Eosinophils % 3.2 % Basophils % 0.6 % Neutrophils # 2.9 (1.6-8.9) K/mcL Lymphocytes # 3.3 (0.6-4.6) K/mcL Monocytes # 0.7 (0.0-1.3) K/mcL Eosinophils # 0.2 (0.0-0.6) K/mcL Basophils # 0.0 (0.0-0.2) K/mcL PT 9.9 (9.4-12.1) Seconds INR 0.9 Sodium (136-145) mEq/L Potassium (3.5-5.1) mEq/L Chloride (98-107) mEq/L Carbon Dioxide (23-29) mEq/L BUN (8-23) mg/dL Creatinine (0.60-1.20) mg/dL Est GFR ( Amer) (> 60) Est GFR (Non-Af Amer) (> 60) BUN/Creatinine Ratio (6-26) Glucose (70-105) mg/dL Calculated Osmolality (280-300) Calcium (8.6-10.3) mg/dL Troponin I (< 0.04) ng/mL B-Natriuretic Peptide 41 (Less than 100) pg/mL 03/16/18 Range/Units 20:10 WBC (4.3-11.1) K/mcL RBC (3.82-4.97) M/mcL Hgb (11.5-15.4) g/dL Hct (35.3-44.9) % MCV (83.0-100.0) fL MCH (28.0-33.3) pg MCHC (31.6-35.5) g/dL RDW (11.5-14.5) % Plt Count (140-400) K/mcL MPV (9.4-12.4) fL Immature Gran % (0-4) % Seg Neutrophils % % Lymphocytes % % Monocytes % % Eosinophils % % Basophils % % Neutrophils # (1.6-8.9) K/mcL Lymphocytes # (0.6-4.6) K/mcL Monocytes # (0.0-1.3) K/mcL Eosinophils # (0.0-0.6) K/mcL Basophils # (0.0-0.2) K/mcL PT (9.4-12.1) Seconds INR Sodium 140 (136-145) mEq/L Potassium 4.1 (3.5-5.1) mEq/L Chloride 105 (98-107) mEq/L Carbon Dioxide 27 (23-29) mEq/L BUN 14 (8-23) mg/dL Creatinine 0.70 (0.60-1.20) mg/dL Est GFR ( Amer) > 60 (> 60) Est GFR (Non-Af Amer) > 60 (> 60) BUN/Creatinine Ratio 20 (6-26) Glucose 112 H (70-105) mg/dL Calculated Osmolality 291 (280-300) Calcium 9.9 (8.6-10.3) mg/dL Troponin I < 0.03 (< 0.04) ng/mL B-Natriuretic Peptide (Less than 100) pg/mL - Radiology Data Radiology results reviewed: Yes I reviewed the patient's radiology results. Chest X-Ray 03/16/18 19:53 IMPRESSION: No acute abnormality. D/ / Edson Gonzalez MD / Edson Gonzalez MD Interpreting Provider: Edson Gonzalez MD Head CT 03/16/18 19:54 IMPRESSION: No acute intracranial abnormality. D/ / Hunter Clark MD / Hunter Clark MD Interpreting Provider: Hunter Clark MD - EKG Data EKG #1 EKG attestation: Yes I reviewed and interpreted this EKG. EKG shows normal: sinus rhythm Rate: normal Rhythm: NSR Point/QRS: normal Interpretation: no acute changes S.B.A.R. - S.B.A.R. Situation: Demographics Background: Presenting Complaint Assessment: Vital Signs, Patient/Family Expectation Recommendation: Barrier(s) to disposition, Recommendation based on pending studies, treatments, or consults Rik Report Given to: Dr. Mark Jolly Repor Time: 22:19 Attestation Statement - Attestation Attestation: I examined this patient and my medical decision-making was reviewed with the Resident Physician. I agree with the documented findings, disposition and treatment plan as described except to the extent set forth below. Findings consistent with hypertensive emergency. We will start labetalol. We will admit for further management of blood pressure related disease.
[2018-03-16 20:22] LABS: Basophils % 0.6 %; Eosinophils # 0.2 K/mcL (0.0-0.6); Eosinophils % 3.2 %; Hematocrit 46.9 % (35.3-44.9); Hemoglobin 15.8 g/dL (11.5-15.4); Immature Granulocytes % 0.1 % (0-4); Lymphocytes # 3.3 K/mcL (0.6-4.6); Lymphocytes % 46.2 %; Mean Corpuscular HGB Conc 33.7 g/dL (31.6-35.5); Mean Corpuscular Hemoglobin 32.7 pg (28.0-33.3); Mean Corpuscular Volume 97.1 fL (83.0-100.0); Mean Platelet Volume 9.6 fL (9.4-12.4); Monocytes # 0.7 K/mcL (0.0-1.3); Monocytes % 10.2 %; Neutrophils # 2.9 K/mcL (1.6-8.9); Platelet Count 172 K/mcL (140-400); Red Blood Count 4.83 M/mcL (3.82-4.97); Red Cell Distribution Width 12.9 % (11.5-14.5); Segmented Neutrophils % 39.7 %
[2018-03-16 20:53] LABS: BUN/Creatinine Ratio 20 (6-26); Blood Urea Nitrogen 14 mg/dL (8-23); Calcium 9.9 mg/dL (8.6-10.3); Carbon Dioxide 27 mEq/L (23-29); Chloride 105 mEq/L (98-107); Glucose 112 mg/dL (70-105); Osmolality,Calculated 291 (280-300); Potassium 4.1 mEq/L (3.5-5.1); Sodium 140 mEq/L (136-145); Troponin I < 0.03 ng/mL (< 0.04); eGFR For African Americans > 60 (> 60); eGFR For Non-African Americans > 60 (> 60)
[2018-03-16 21:03] LABS: INR 0.9; Prothrombin Time 9.9 Seconds (9.4-12.1)
--- NOTE | 2018-03-16 22:42 | Internal Med History&Physical ---
Date of Encounter: 03/16/18 Time of Encounter: 22:41 Internal Medicine - H&P: HPI Chief complaint: headache Admitted From: Emergency Dept Plans for Post Hospital Care: Home History of present illness: Ms. Skinner is a 87 year old female chronic low back pain, hyperlipidemia and hypertension who presented to the emergency department with chief complaint of headache/dizziness/blurry vision. Symptoms started yesterday at [facility]. Denies any weakness, numbness, tingling. When she presented to the ED she was noted to be hypertensive with a systolic blood pressure of 212/112. She was given IV labetalol 10 mg and started on a Cardene drip after. By the time I was evaluating patient her blood pressure was in the 180s systolically. and The patient states that she takes a blood pressure medication although she is not aware which. She takes half a pill of that agent. She denies any recent adjustments to her medications. Denies any chest pain, fever, chills, nausea, vomiting, shortness breath, abdominal pain, diarrhea, constipation, urinary symptoms, or neurological symptoms. Because of complaints of dizziness the patient was evaluated with a CT head which was unremarkable. A chest x-ray was clear. Laboratory workup was unremarkable in the ED included troponins that were not elevated. EKG with sinus rhythm with no ST or T-wave changes. Past Med Surg Social Fam HX - Past Medical History Medical history: hyperlipidemia, hypertension Additional medical history: TB Psychiatric history: no psych history - Past Surgical History Surgical History: non-contributory Additional surgical history: tonsillectomy/adenoidectomy - Social History Smoking Status: Never smoker Smokeless Tobacco Status: No Alcohol use: none Drug use: none - Family History Son Living Status: Hx Family Cardiac Disorders: Yes Father Living Status: Hx Family Cardiac Disorders: Yes Internal Medicine - H&P: Meds Docusate [Colace] 100 mg PO DAILY PRN 07/16/17 [History] Ergocalciferol (VITAMIN D2) [Vitamin D2] 50,000 unit PO WE 07/16/17 [History] Ferrous Sulfate [Iron] 325 mg PO DAILY 07/16/17 [History] Levothyroxine Sodium 112 mcg PO QAM 07/16/17 [History] Losartan Potassium [Cozaar] 100 mg PO DAILY 07/16/17 [History] 3 Allergy/AdvReac Type Severity Reaction Status Date / Time No Known Allergies Allergy Verified 03/16/18 20:25 All Systems PM: A 10-system review of systems was performed and is negative for pertinent findings except as documented above in the HPI. Review of systems: All systems reviewed are negative except for as mentioned above - Constitutional Vitals: Temp Pulse Resp BP Pulse Ox 97.6 F 72 18 164/89 91 03/16/18 19:52 03/16/18 22:20 03/16/18 19:52 03/16/18 22:20 03/16/18 22:20 Exam: GEN: NAD HEENT: AT, NC, No cyanosis, oral mucosa is moist, No JVD Lymphatics: No lymphadenoapthy Eyes: Extrocular muscles intact, anicteric CVS:RRR. S1, S2, No m/r/g RESP: CTAB ABD: Soft, NT, ND, +BS EXT: No edema, No rashes, 2+ DP NEURO: Nonfocal, CN II-XII intact, No focal motor or sensory deficits Psych: Cooperative, Not anxious or depressed Internal Med - H&P Results - Labs CBC & Chem 7: 03/16/18 20:10 03/16/18 20:10 - Assessment and plan (1) Hypertensive urgency Current Visit: Yes Status: Acute Assessment and plan: The patient has been given IV labetalol and started on a Cardene drip. We will admit the patient to [facility]. We will keep on a Cardene drip with a goal systolic blood pressure less than 160. She is not sure what exactly she takes for her blood pressure but she says she takes half a pill of an agent. This likely to be losartan based on previous discharge summary. Her daughter will get her medication list. The patient may have to make some adjustments or add another agent at discharge. We will get an echocardiogram. Continue to monitor on telemetry. (2) Dizziness Current Visit: Yes Status: Acute Assessment and plan: Likely secondary to uncontrolled hypertension. She also associated blurry vision and headache. We will try to have better blood pressure control as above. We will get an echocardiogram. Check TSH. No focal neurological deficits on exam. (3) Hypothyroidism Current Visit: Yes Status: Acute Assessment and plan: Continue home Synthroid. Check TSH. Qualifiers: Hypothyroidism type: unspecified Qualified Code(s): E03.9 - Hypothyroidism , unspecified (4) DVT prophylaxis Current Visit: No Status: Acute Assessment and plan: Heparin subcutaneous - Time Spent With Patient Total time spent is greater than 50% in coordination of care (as documented) at patient's floor/unit and/or counseling patient:
[2018-03-16] MEDS ORDERED: Naloxone 0.4 MG/ML INJ IVP PRN (22:56)
[2018-03-16] MEDS ORDERED: Ondansetron 4 MG/2 ML VIAL IVP PRN (22:56)
[2018-03-17 04:44] LABS: Basophils % 0.5 %; Eosinophils # 0.2 K/mcL (0.0-0.6); Eosinophils % 2.2 %; Hematocrit 43.1 % (35.3-44.9); Hemoglobin 14.3 g/dL (11.5-15.4); Immature Granulocytes % 0.1 % (0-4); Lymphocytes # 2.5 K/mcL (0.6-4.6); Mean Corpuscular HGB Conc 33.2 g/dL (31.6-35.5); Mean Corpuscular Hemoglobin 31.8 pg (28.0-33.3); Mean Corpuscular Volume 95.8 fL (83.0-100.0); Mean Platelet Volume 10.2 fL (9.4-12.4); Monocytes # 0.7 K/mcL (0.0-1.3); Monocytes % 8.9 %; Neutrophils # 4.2 K/mcL (1.6-8.9); Platelet Count 181 K/mcL (140-400); Red Cell Distribution Width 13.1 % (11.5-14.5); Segmented Neutrophils % 55.3 %
[2018-03-17 05:03] LABS: BUN/Creatinine Ratio 18 (6-26); Blood Urea Nitrogen 12 mg/dL (8-23); Calcium 9.5 mg/dL (8.6-10.3); Carbon Dioxide 27 mEq/L (23-29); Chloride 106 mEq/L (98-107); Glucose 114 mg/dL (70-105); Magnesium 1.6 mg/dL (1.6-2.6); Osmolality,Calculated 291 (280-300); Potassium 3.5 mEq/L (3.5-5.1); Sodium 140 mEq/L (136-145); eGFR For African Americans > 60 (> 60); eGFR For Non-African Americans > 60 (> 60)
[2018-03-17 05:15] LABS: Thyroid Stimulating Hormone 6.936 mcIU/mL (0.340-5.600)
[2018-03-17] MEDS: niCARdipine 40 MG/200 ML MLS IVC SCH (05:18)
[2018-03-17] MEDS: *HR* Heparin 5,000 UNIT/ML VIAL SQ SCH ×3 (05:21→22:13)
[2018-03-17] MEDS: Acetaminophen 325 MG TABLET PO PRN ×2 (08:52→17:07)
[2018-03-17] MEDS: hydroCHLOROthiazide 25 MG TABLET PO SCH (12:07)
--- NOTE | 2018-03-17 13:40 | Internal Med Progress Note ---
Date of Encounter: 03/17/18 Time of Encounter: 13:38 - Assessment and plan (1) Hypertensive urgency Current Visit: Yes Status: Acute Assessment and plan: Improved but blood pressure remains elevated. Will start patient on hydrochlorothiazide in addition to losartan that she takes at home. Continue to monitor blood pressure closely. Target systolic blood pressure of 150. We will avoid aggressive blood pressure control due to risk for hypotension given her advanced age. (2) Hypothyroidism Current Visit: Yes Status: Chronic Assessment and plan: TSH slightly elevated but free T4 is normal. Continue levothyroxine. Qualifiers: Hypothyroidism type: unspecified Qualified Code(s): E03.9 - Hypothyroidism , unspecified (3) Dizziness Current Visit: Yes Status: Acute Assessment and plan: Now resolved. Due to hypertensive urgency. (4) DVT prophylaxis Current Visit: No Status: Acute Assessment and plan: On subcutaneous heparin - Time Spent With Patient Total time spent is greater than 50% in coordination of care (as documented) at patient's floor/unit and/or counseling patient: - Subjective Interval history: Patient seen earlier today. She feels better compared to yesterday. Denies any dizziness or lightheadedness. No chest pain. She reports that she is under a lot of stress at home with her daughter and denies missing any of her medication doses. She follows up with Dr. Miller and her last changed her medication doses in July. No focal weakness or numbness. No speech abnormality. - Constitutional Vitals: Temp Pulse Resp BP Pulse Ox 98.4 F 70 20 151/77 91 03/17/18 11:30 03/17/18 11:30 03/17/18 11:30 03/17/18 11:30 03/17/18 11:30 General appearance: Present: cooperative, A&O X 3, answers questions appropriately - Eye Eye exam: Present: EOMI, PERRL, conjuntiva pink, sclera anicteric - Respiratory Respiratory exam: Present: CTAB. Absent: accessory muscle use, rales, rhonchi, wheezes - Cardiovascular Cardiovascular exam: Present: RRR, +S1, +S2, systolic murmur. Absent: diastolic murmur, gallop, rubs - GI/Abdominal GI/Abdominal exam: Present: normal bowel sounds, soft, no peritoneal signs. Absent: distended, tenderness - Extremities Exam Extremities exam: Present: warm, radial pulses palpable and symmetrical. Absent : calf tenderness, cyanotic, pedal edema - Neurological Exam Neurological exam: Present: CN II-XII intact, oriented X3, no focal deficits. Absent: facial droop, speech deficit Internal Medicine: Result - Labs CBC & Chem 7: 03/17/18 04:19 03/17/18 04:19 Labs: Short CBC 03/17/18 Range/Units 04:19 WBC 7.7 (4.3-11.1) K/mcL Hgb 14.3 D (11.5-15.4) g/dL Hct 43.1 (35.3-44.9) % Plt Count 181 (140-400) K/mcL Neutrophils # 4.2 (1.6-8.9) K/mcL BMP 03/17/18 04:19 Sodium 140 Potassium 3.5 Chloride 106 Carbon Dioxide 27 BUN 12 Creatinine 0.65 Glucose 114 H Calcium 9.5 - ABG Interpretation ABG results: PT/INR, D-dimer PT 9.9 Seconds (9.4-12.1) 03/16/18 20:10 - Impressions Impressions Echocardiogram 03/17/18 22:55 Impressions: LVEF 60-65%. Normal LV chamber size, wall thickness and function. Mild left ventricular diastolic dysfunction. Normal right ventricular structure and function. No evidence of pulmonary hypertension. No significant valvular dysfunction. Left Ventricular Wall Motion: Rest Echo Findings All wall segments showed normal motion. Findings: Study Quality * Technically adequate exam. ECG Findings * Normal sinus rhythm. Left Ventricle * LVEF 60-65%. * Normal LV chamber size, wall thickness and function. * Mild left ventricular diastolic dysfunction. Right Ventricle * Normal right ventricular structure and function. Left Atrium * Mildly dilated left atrium. Right Atrium * Normal right atrial size. Aortic Valve * Trileaflet aortic valve. * Mild aortic regurgitation. * No aortic stenosis. Mitral Valve * Normal mitral valve structure and function. * No mitral regurgitation. * No mitral stenosis. Tricuspid Valve * Normal tricuspid valve structure and function. * Trace tricuspid regurgitation. * No evidence of pulmonary hypertension. Pulmonic Valve * Normal pulmonic valve structure and function. * No pulmonic regurgitation. Aorta * Normally sized aortic root. Pericardium * The pericardium appears normal. IVC * Normal IVC dimensions and inspiratory collapse. Pulmonary Artery * Normal visualized portions of the main pulmonary artery. Consult Discharge Plan - Plan Referrals: Robin Miller MD [Primary Care Provider] - 03/26/18 1:00 pm
--- NOTE | 2018-03-17 18:36 | Electrocardiograph Report ---
[address] [place], [place] [address] Test Date: 2018-03-16 Pat Name: Shelley Skinner Department: 103 Room: 2N15 Gender: F [employer] Installer: LRS : [id number] Requested By: Benito Skinner Order Number: [id number] Reading MD: Arnaldo Pineda Measurements Intervals [place] Rate: 83 P: 55 DE: 169 QRS: 49 QRSD: 85 T: 49 QT: 374 QTc: 414 Interpretive Statements SINUS RHYTHM BASELINE ARTIFACT Electronically Signed On 03-17-2018 18:35:14 EDT by Arnaldo Pineda
[2018-03-18] MEDS: Acetaminophen 325 MG TABLET PO PRN (00:22)
[2018-03-18] MEDS: *HR* Heparin 5,000 UNIT/ML VIAL SQ SCH (05:44)
[2018-03-18 07:11] LABS: BUN/Creatinine Ratio 23 (6-26); Blood Urea Nitrogen 16 mg/dL (8-23); Carbon Dioxide 23 mEq/L (23-29); Chloride 105 mEq/L (98-107); Glucose 99 mg/dL (70-105); Osmolality,Calculated 289 (280-300); Sodium 139 mEq/L (136-145); eGFR For African Americans > 60 (> 60); eGFR For Non-African Americans > 60 (> 60)
[2018-03-18 07:12] VITALS: BP 140/84
[2018-03-18] MEDS: hydroCHLOROthiazide 25 MG TABLET PO SCH (07:54)
--- NOTE | 2018-03-18 11:15 | Discharge Summary ---
- NOTES TO OUTPATIENT PROVIDER Notes to Outpatient Provider: Patient hospitalized with hypertensive urgency. Placed hydrochlorothiazide in addition to her losartan with improvement in blood pressure. It is now better controlled. Stable to be discharged home. She will follow up with her primary care provider for further management. Date of Encounter: 03/18/18 Time of Encounter: 11:12 - Discharge Diagnosis (1) Hypertensive urgency Priority: Primary Status: Acute (2) Hypothyroidism Priority: Secondary Status: Chronic Qualifiers: Hypothyroidism type: unspecified Qualified Code(s): E03.9 - Hypothyroidism , unspecified (3) Dizziness Priority: Secondary Status: Resolved (4) DVT prophylaxis Priority: Secondary Status: Acute Hospital course: Ms. Skinner is a 87 year old female patient with history of hypertension, hyperlipidemia, chronic low back pain who was hospitalized here with hypertensive urgency. Her blood pressure was 212/112 on arrival to the ED. She was given IV labetalol and started on nicardipine drip after that. She was then admitted to stepdown unit. Her blood pressure has closely being monitored since then and she has been placed back on losartan. She will she remained hypertensive and so was also placed on hydrochlorothiazide . With these 2 medications her blood pressure has improved. She is now stable to be discharged home. She will follow up with her primary care provider for further management. Discharge discussed with: patient, nurse - Time Spent with Patient Total time spent providing and/or coordinating discharge services: Less than 30 minutes (25 min) - Discharge Medications Prescriptions: hydroCHLOROthiazide [Hydrochlorothiazide] 12.5 mg PO DAILY #30 tablet Losartan Potassium [Cozaar] 100 mg PO DAILY #30 tablet Home Medications: Docusate [Colace] 100 mg PO DAILY PRN 07/16/17 [History] Ergocalciferol (VITAMIN D2) [Vitamin D2] 50,000 unit PO WE 07/16/17 [History] Ferrous Sulfate [Iron] 325 mg PO DAILY 07/16/17 [History] Levothyroxine Sodium 112 mcg PO QAM 07/16/17 [History] Losartan Potassium [Cozaar] 100 mg PO DAILY #30 tablet 03/18/18 [Rx] hydroCHLOROthiazide [Hydrochlorothiazide] 12.5 mg PO DAILY #30 tablet 03/18/18 [ Rx] Allergies/Adverse Reactions: 3 Allergy/AdvReac Type Severity Reaction Status Date / Time No Known Allergies Allergy Verified 03/16/18 20:25 Date of admission: 03/16/18 22:24 Primary care physician: Robin Miller MD Consults: 03/16/18 22:55 Consult to Occupational Therapy [CONS] Routine Comment: Evaluate, develop and implement POC Reason for Consult: therapy/placement needs Does patient have active BEDREST order?: No Is patient medically & hemodynamically stable?: Yes Consult to Physical Therapy [CONS] Routine Comment: Evaluate, develop and implement POC Reason for Consult: PT eval Does patient have active BEDREST order?: No Is patient medically & hemodynamically stable?: Yes 03/16/18 23:28 Consult to Pastoral Services [CONS] Routine Comment: Discharging clinician: Pastora Fisher Anticipated date of discharge: 03/18/18 - Constitutional Vitals: Temp Pulse Resp BP Pulse Ox 98.8 F 74 16 140/84 95 03/18/18 07:55 03/18/18 07:55 03/18/18 07:55 03/18/18 07:55 03/18/18 07:55 General appearance: Present: cooperative, A&O X 3, answers questions appropriately - Neck Neck exam general surgery: Present: supple, trachea midline. Absent: lymphadenopathy - Respiratory Respiratory exam: Present: CTAB. Absent: accessory muscle use, rales, rhonchi, wheezes - Cardiovascular Cardiovascular exam: Present: RRR, +S1, +S2. Absent: diastolic murmur, gallop, rubs, systolic murmur - GI/Abdominal GI/Abdominal exam: Present: normal bowel sounds, soft, no peritoneal signs. Absent: distended, tenderness - Extremities Exam Extremities exam: Present: warm, radial pulses palpable and symmetrical. Absent : calf tenderness, cyanotic, pedal edema - Neurological Exam Neurological exam: Present: CN II-XII intact, oriented X3, no focal deficits. Absent: facial droop, speech deficit - Skin Skin exam: Present: dry, intact - Patient Status Disposition: Home, Self-Care Condition: Good Functional capacity at discharge: independent ambulation Overall status at discharge: patient is progressing back to baseline - Discharge Instructions Instructions: Hydrochlorothiazide (By mouth), Losartan (By mouth), Chronic Hypertension (DC) Follow Up With: Robin Miller MD [Primary Care Provider] - 03/26/18 1:00 pm Forms: ED Satisfaction Letter - Diet and Activity Activity: increase activity as tolerated Diet: low fat, low cholesterol, low salt diet
== END 2018-03-18 11:58 | disposition home or self-care (01) | DRG 305 ==
LOC: EMEROO 19:39 → 2NNU 22:24 → SUATTDRO 22:24 → 2NNU 23:03
PROVIDERS: ADMIT Internal Medicine; ATTEND Internal Medicine

== ENCOUNTER 2019-11-15 22:35 | Inpatient (IN) ==
[2019-11-16] MEDS ORDERED: Ondansetron ODT 4 MG TAB.RAPDIS SL ONE (01:13)
[2019-11-16] MEDS ORDERED: *HR* HYDROcodone/Acet 5/325 mg TABLET PO ONE (01:13)
[2019-11-16 02:43] LABS: Bilirubin,Urine Negative (Negative); Blood,Urine Small (Negative); Clarity,Urine Clear (Clear); Color,Urine Yellow (Yellow); Glucose,Urine (UA) Normal (Normal); Ketones,Urine 15 mg/dL (Negative); Leukocyte Esterase,Urine Trace (Negative); Nitrite,Urine Negative (Negative); PH,Urine 7.5 pH Units (5.0-8.0); Protein,Urine Negative (Neg-Trace); Specific Gravity,Urine 1.012 (1.010-1.025); Urobilinogen,Urine Normal (Normal)
[2019-11-16 02:46] LABS: Bacteria,Urine None Seen per hpf (None-Few); Hyaline Casts,Urine None Seen per lpf (None-Few); RBC,Urine 0-3 per hpf (0-3); Squamous Epithelial Cell,Urine Few per lpf (None-Few)
[2019-11-16 05:49] LABS: Basophils % 0.4 %; Eosinophils # 0.1 K/mcL (0.0-0.6); Eosinophils % 1.2 %; Hematocrit 46.4 % (35.3-44.9); Hemoglobin 15.4 g/dL (11.5-15.4); Immature Granulocytes % 0.2 % (0-4); Lymphocytes # 1.7 K/mcL (0.6-4.6); Lymphocytes % 20.6 %; Mean Corpuscular HGB Conc 33.2 g/dL (31.6-35.5); Mean Corpuscular Hemoglobin 32.6 pg (28.0-33.3); Mean Corpuscular Volume 98.1 fL (83.0-100.0); Mean Platelet Volume 9.5 fL (9.4-12.4); Monocytes # 0.8 K/mcL (0.0-1.3); Monocytes % 9.6 %; Neutrophils # 5.5 K/mcL (1.6-8.9); Platelet Count 205 K/mcL (140-400); Red Blood Count 4.73 M/mcL (3.82-4.97); Red Cell Distribution Width 13.2 % (11.5-14.5); White Blood Count 8.2 K/mcL (4.3-11.1)
[2019-11-16 06:10] LABS: BUN/Creatinine Ratio 21 (6-26); Blood Urea Nitrogen 12 mg/dL (8-23); Calcium 9.6 mg/dL (8.6-10.3); Carbon Dioxide 27 mEq/L (23-29); Chloride 101 mEq/L (98-107); Glucose 122 mg/dL (70-105); Osmolality,Calculated 291 (280-300); Potassium 3.5 mEq/L (3.5-5.1); Sodium 140 mEq/L (136-145); eGFR For African Americans > 60 (> 60); eGFR For Non-African Americans > 60 (> 60)
[2019-11-16] MEDS ORDERED: Naloxone 0.4 MG/ML INJ IVP PRN (08:16)
[2019-11-16] MEDS ORDERED: *HR* OxyCODONE/APAP 5/325 TABLET PO PRN (08:59)
[2019-11-17 06:10] LABS: Basophils % 0.4 %; Eosinophils # 0.3 K/mcL (0.0-0.6); Eosinophils % 3.7 %; Hematocrit 44.1 % (35.3-44.9); Hemoglobin 14.8 g/dL (11.5-15.4); Immature Granulocytes % 0.1 % (0-4); Lymphocytes # 1.9 K/mcL (0.6-4.6); Lymphocytes % 28.8 %; Mean Corpuscular HGB Conc 33.6 g/dL (31.6-35.5); Mean Corpuscular Hemoglobin 33.1 pg (28.0-33.3); Mean Corpuscular Volume 98.7 fL (83.0-100.0); Mean Platelet Volume 9.8 fL (9.4-12.4); Monocytes # 0.7 K/mcL (0.0-1.3); Monocytes % 10.5 %; Neutrophils # 3.8 K/mcL (1.6-8.9); Platelet Count 219 K/mcL (140-400); Red Blood Count 4.47 M/mcL (3.82-4.97); Red Cell Distribution Width 13.6 % (11.5-14.5); Segmented Neutrophils % 56.5 %; White Blood Count 6.7 K/mcL (4.3-11.1)
[2019-11-17 06:36] LABS: BUN/Creatinine Ratio 22 (6-26); Blood Urea Nitrogen 18 mg/dL (8-23); Calcium 10.2 mg/dL (8.6-10.3); Carbon Dioxide 30 mEq/L (23-29); Chloride 100 mEq/L (98-107); Glucose 94 mg/dL (70-105); Magnesium 1.7 mg/dL (1.6-2.6); Osmolality,Calculated 294 (280-300); Potassium 3.7 mEq/L (3.5-5.1); Sodium 141 mEq/L (136-145); eGFR For African Americans > 60 (> 60); eGFR For Non-African Americans > 60 (> 60)
[2019-11-17] MEDS: Valsartan 160 MG TABLET PO SCH (08:17)
[2019-11-17] MEDS: amLODIPine 5 MG TABLET PO SCH (08:17)
[2019-11-18] MEDS: Acetaminophen 325 MG TABLET PO PRN (06:11)
[2019-11-18] MEDS: Valsartan 160 MG TABLET PO SCH (09:08)
[2019-11-18] MEDS: amLODIPine 5 MG TABLET PO SCH (09:08)
[2019-11-18] MEDS ORDERED: *HR* OxyCODONE Immed Rel 5 MG TABLET PO PRN (09:34)
[2019-11-18] MEDS ORDERED: Naloxone 0.4 MG/ML INJ IVP PRN (09:34)
[2019-11-18] MEDS: Sennosides/Docusate Sodium TABLET PO SCH ×2 (10:47→20:25)
[2019-11-19] MEDS: Acetaminophen 325 MG TABLET PO PRN (08:14)
[2019-11-19] MEDS: amLODIPine 5 MG TABLET PO SCH (08:14)
[2019-11-19] MEDS: Valsartan 160 MG TABLET PO SCH (08:14)
[2019-11-19] MEDS: Sennosides/Docusate Sodium TABLET PO SCH ×3 (08:14→20:05)
[2019-11-20] MEDS: Acetaminophen 325 MG TABLET PO PRN ×2 (03:16→14:02)
[2019-11-20] MEDS: Sennosides/Docusate Sodium TABLET PO SCH (08:33)
[2019-11-20] MEDS: amLODIPine 5 MG TABLET PO SCH (08:33)
[2019-11-20] MEDS: Valsartan 160 MG TABLET PO SCH (08:33)
[2019-11-20 10:41] VITALS: BP 128/78
== END 2019-11-20 14:50 | DRG 552 ==
LOC: CDU 22:35 → EMEROOARM 22:35 → SUATTDRO 11-16 06:34 → CDU 11-16 07:42 → 3NENU 11-16 14:13
PROVIDERS: ADMIT Internal Medicine; ATTEND Student in an Organized Health Care Education/Training Program